=== PATIENT | female | born 1965 | race American Indian/Alaskan Native ===

== ENCOUNTER 2019-08-30 21:06 | Inpatient (IN) | payer BC, OTHER ==
[2019-08-31 00:41] LABS: Mean Corpuscular HGB Conc 30 % (30-34); Platelet Count 346 K/mm3 (140-440); Red Blood Count 2.93 M/mm3 (3.65-5.03); Red Cell Distribution Width 19.4 % (13.2-15.2)
[2019-08-31 00:48] LABS: Hematocrit 17.1 % (30.3-42.9); Hemoglobin 5.1 gm/dl (10.1-14.3); Mean Corpuscular Volume 58 fl (79-97)
[2019-08-31] MEDS ORDERED: SODIUM CHLORIDE 0.9% 1000 ML 1,000 ML IV ONE (01:07)
[2019-08-31] MEDS ORDERED: PANTOPRAZOLE 40 MG INJ IV ONE (01:07)
[2019-08-31] MEDS ORDERED: SODIUM CHLORIDE 0.9% 500 ML 500 ML IV ONE (01:08)
[2019-08-31 01:11] LABS: Alanine Aminotransferase 27 units/L (7-56); Albumin 3.3 g/dL (3.9-5); BUN/Creatinine Ratio 17; Blood Urea Nitrogen 19 mg/dL (7-17); Calcium 9.2 mg/dL (8.4-10.2); Hemolysis Index 0
[2019-08-31 01:13] LABS: Bacteria,Urine 2+ /HPF (Negative); Bilirubin,Urine NEG (Negative); Blood,Urine NEG (Negative); Color,Urine Amber (Yellow); HCG Qualitative,Urine Negative (Negative); Mucus,Urine FEW /HPF; Urobilinogen,Urine < 2.0 mg/dL (<2.0)
--- NOTE | 2019-08-31 01:18 | Emergency Department Report ---
HPI - General Chief Complaint: Abdominal Pain Time Seen by Provider: 08/31/19 00:58 - HPI HPI: Room 6 The patient is a 54-year-old female presenting with a chief complaint of diarrhea and fatigue. The patient states for the past 4-5 days she's had abdo mami bloating diffuse abdominal pain and diarrhea. The patient states her diarrhea has been black in color. Yesterday in the day before the patient had nausea vomiting but there was no blood or coffee ground emesis. Patient states she has no objections bahai or otherwise to receiving a blood transfusion if necessary Location: [See above] Duration: [See above] Quality: [See above] Severity: [See above] Timing: [See above] Context: [See above] Modifying factors: [See above] Associated signs and symptoms: [see above] ED Past Medical Hx - Past Medical History Previous Medical History?: No - Surgical History Past Surgical History?: No - Family History Family history: no significant - Social History Smoking Status: Never Smoker Substance Use Type: None (denies illicit drug use), Alcohol (occasional) - Medications Home Medications: Home Medications Medication Instructions Recorded Confirmed Last Taken Type Clindamycin [Clindamycin CAP] 600 mg PO BID #28 capsule 05/06/15 Unknown Rx Fluconazole [Diflucan TAB] 150 mg PO ONCE #1 tablet 05/06/15 Unknown Rx Oxycodone HCl/Acetaminophen 1 each PO TID PRN #15 tablet 05/06/15 Unknown Rx [Percocet 7.5/325 mg] ED Review of Systems ROS: Stated complaint: STOMACH PAIN GALICIA FEVER Other details as noted in HPI Constitutional: malaise Eyes: denies: eye pain ENT: denies: throat pain Respiratory: no symptoms reported Cardiovascular: denies: chest pain Endocrine: no symptoms reported Gastrointestinal: abdominal pain, nausea, vomiting, diarrhea, melena Genitourinary: denies: dysuria Musculoskeletal: back pain Neurological: denies: headache Physical Exam - Physical Exam Vital Signs: Vital Signs 08/30/19 08/30/19 23:35 23:51 Temperature 99.5 F 98.5 F Pulse Rate 124 H 115 H Respiratory 18 18 Rate Blood Pressure 118/44 Blood Pressure 120/45 [Right] O2 Sat by Pulse 98 99 Oximetry Physical Exam: GENERAL: The patient is well-developed well-nourished female lying on stretcher not appearing to be in acute distress. [] HEENT: Normocephalic. Atraumatic. Extraocular motions are intact. Patient has moist mucous membranes. NECK: Supple. Trachea midline CHEST/LUNGS: Clear to auscultation. There is no respiratory distress noted. HEART/CARDIOVASCULAR: Regular. There is no tachycardia. There is no gallop rub or murmur. ABDOMEN: Abdomen is soft, mild discomfort to palpation. No rebound or guarding. Patient has normal bowel sounds. There is no abdominal distention. SKIN: There is no rash. There is no edema. There is no diaphoresis. NEURO: The patient is awake, alert, and oriented. The patient is cooperative. The patient has no focal neurologic deficits. The patient has normal speech MUSCULOSKELETAL: There is no evidence of acute injury. RECTAL: Paucity of stool. Faint guaiac positive ED Course Vital Signs 08/30/19 08/30/19 23:35 23:51 Temperature 99.5 F 98.5 F Pulse Rate 124 H 115 H Respiratory 18 18 Rate Blood Pressure 118/44 Blood Pressure 120/45 [Right] O2 Sat by Pulse 98 99 Oximetry - Consultations Consultation #1: 08/31/19 01:19 GI paged 08/31/19 01:[address] Archer ED Medical Decision Making - Lab Data Result diagrams: 08/31/19 00:05 08/31/19 00:05 Laboratory Tests 08/30/19 08/31/19 08/31/19 Unknown 00:05 00:05 WBC 37.5 H RBC 2.93 L Hgb 5.1 L* Hct 17.1 L* MCV 58 L MCH 17 L MCHC 30 RDW 19.4 H Plt Count 346 Seg Neutrophils % Technical Solution Architect Sodium 137 Potassium 3.3 L Chloride 99.3 Carbon Dioxide 20 L Anion Gap 21 BUN 19 H Creatinine 1.1 Estimated GFR > 60 BUN/Creatinine Ratio 17 Glucose 107 H Calcium 9.2 Total Bilirubin 0.70 AST 19 ALT 27 Alkaline Phosphatase 109 Total Protein 7.2 Albumin 3.3 L Albumin/Globulin Ratio 0.8 Urine Color Sally Urine Turbidity Turbid Urine pH 5.0 Ur Specific [place] 1.021 Urine Protein 30 mg/dl Urine Glucose (UA) Neg Urine Ketones Neg Urine Blood Neg Urine Nitrite Neg Urine Bilirubin Neg Urine Urobilinogen < 2.0 Ur Leukocyte Esterase Sm Urine WBC (Auto) 81.0 H Urine RBC (Auto) 6.0 U Epithel Cells (Auto) 8.0 Urine Bacteria (Auto) 2+ Urine Mucus Few Urine HCG, Qual Negative - Differential Diagnosis GI bleed Critical care attestation.: If time is entered above; I have spent that time in minutes in the direct care of this critically ill patient, excluding procedure time. ED Disposition Clinical Impression: GI bleed, Symptomatic anemia, UTI (urinary tract infection) Disposition: OP ADMIT IP TO THIS HOSP Is pt being admited?: Yes Does the pt Need Aspirin: No Condition: Fair Instructions: Abdominal Pain (ED) Time of Disposition: 01:31 (hospitalist paged (Dr Trivedi))
[2019-08-31] MEDS ORDERED: ONDANSETRON 4 MG/2 ML INJ IV ONE (01:48)
[2019-08-31] MEDS ORDERED: fentaNYL 100 MCG/2 ML INJ IV ONE (01:48)
[2019-08-31] MEDS ORDERED: PANTOPRAZOLE 80 MG in SODIUM CHLORIDE 0.9% 100 ML IV SCH (02:00)
[2019-08-31 02:23] LABS: Partial Thromboplastin Time 41.6 Sec. (24.2-36.6)
[2019-08-31 02:26] LABS: INR 1.34 (0.87-1.13)
[2019-08-31 02:54] LABS: Total Cells Counted 100
[2019-08-31 02:55] LABS: Anisocytosis 1+; Basophils % (Manual) 0 % (0.0-1.8); Eosinophils % (Manual) 0 % (0.0-4.3); Hypochromasia 1+
[2019-08-31 02:56] LABS: Ovalocytes Few; Platelet Estimate Consistent w Auto
[2019-08-31] MEDS ORDERED: ONDANSETRON 4 MG/2 ML INJ IV PRN (03:59)
--- NOTE | 2019-08-31 04:09 | History and Physical Report ---
History of Present Illness Date of examination: 08/31/19 Date of admission: 08/31/2019 Chief complaint: Nausea vomiting and diarrhea Abdominal pain History of present illness: 54-year-old female who presents to the emergency room today complaining of nausea vomiting and diarrhea over the past 4 to 5 days with associated abdominal pain. She denies any fever or chills, she denies any chest pain or shortness of breath. She denies any sick contacts and no recent travel. She denies any headache or dizziness. She has had generalized fatigue. She indicates she has been using ibuprofen lately for abdominal pain and later on switched to acetaminophen. She indicates her stool has been black in color but she denies any bright red blood per rectum. She denies any hematuria or dysuria. Upon arrival in the emergency room her work-up was significant for anemia with hemoglobin of 5.1, she was also Hemoccult positive, and also had a UTI. She was subsequently started on Protonix drip and director of database marketing was consulted. Past History Past Medical History: No medical history Past Surgical History: Other (Surgery for ectopic in the past) Social history: no significant social history Family history: no significant family history Medications and Allergies Allergies Allergy/AdvReac Type Severity Reaction Status Date / Time codeine Allergy Hives Verified 05/06/15 00:32 Sulfa (Sulfonamide Allergy Unknown Verified 05/06/15 00:32 Antibiotics) Home Medications Medication Instructions Recorded Confirmed Last Taken Type Clindamycin [Clindamycin CAP] 600 mg PO BID #28 capsule 05/06/15 Unknown Rx Fluconazole [Diflucan TAB] 150 mg PO ONCE #1 tablet 05/06/15 Unknown Rx Oxycodone HCl/Acetaminophen 1 each PO TID PRN #15 tablet 05/06/15 Unknown Rx [Percocet 7.5/325 mg] Active Meds: Active Medications Acetaminophen (Tylenol) 650 mg PO Q4H PRN PRN Reason: Pain MILD(1-3)/Fever >100.5/AGLICIA Pantoprazole Sodium 80 mg/ (Sodium Chloride) 100 mls @ 10 mls/hr IV DIRECT YOANDY Sodium Chloride (Nacl 0.9% 1000 Ml) 1,000 mls @ 75 mls/hr IV DIRECT YOANDY Ondansetron HCl (Zofran) 4 mg IV Q8H PRN PRN Reason: Nausea And Vomiting Sodium Chloride (Sodium Chloride Flush Syringe 10 Ml) 10 ml IV BID YOANDY Sodium Chloride (Sodium Chloride Flush Syringe 10 Ml) 10 ml IV PRN PRN PRN Reason: LINE FLUSH Review of Systems Gastrointestinal: abdominal pain, nausea, vomiting, diarrhea Exam - Constitutional Vitals: Temp Pulse Resp BP Pulse Ox 98.5 F 119 H 24 150/54 95 08/30/19 23:51 08/31/19 02:15 08/31/19 02:15 08/31/19 02:15 08/31/19 02:15 General appearance: Present: no acute distress, well-nourished - EENT Eyes: Present: PERRL, EOM intact - Neck Neck: Present: normal ROM - Respiratory Respiratory effort: normal Respiratory: bilateral: CTA - Cardiovascular Rhythm: regular Heart Sounds: Present: S1 & S2 - Extremities Extremities: no ischemia, pulses intact, No edema, Full ROM Peripheral Pulses: within normal limits - Abdominal General gastrointestinal: Present: soft, tender, distended - Integumentary Integumentary: Present: clear, warm, dry - Musculoskeletal Musculoskeletal: strength equal bilaterally - Psychiatric Psychiatric: appropriate mood/affect, intact judgment & insight, cooperative - Neurologic Neurologic: CNII-XII intact, moves all extremities Results - Labs CBC & Chem 7: 08/31/19 00:05 08/31/19 00:05 Labs: Abnormal lab results 08/30/19 08/31/19 08/31/19 Range/Units Unknown 00:05 00:05 WBC 37.5 H (4.5-11.0) K/mm3 RBC 2.93 L (3.65-5.03) M/mm3 Hgb 5.1 L* (10.1-14.3) gm/dl Hct 17.1 L* (30.3-42.9) % MCV 58 L (79-97) fl MCH 17 L (28-32) pg RDW 19.4 H (13.2-15.2) % Seg Neuts % (Manual) 96.0 H (40.0-70.0) % Lymphocytes % (Manual) 2.0 L (13.4-35.0) % Seg Neutrophils # Man 36.0 H (1.8-7.7) K/mm3 Lymphocytes # (Manual) 0.8 L (1.2-5.4) K/mm3 PT (12.2-14.9) Sec. INR (0.87-1.13) APTT (24.2-36.6) Sec. Potassium 3.3 L (3.6-5.0) mmol/L Carbon Dioxide 20 L (22-30) mmol/L BUN 19 H (7-17) mg/dL Glucose 107 H (65-100) mg/dL Albumin 3.3 L (3.9-5) g/dL Urine WBC (Auto) 81.0 H (0.0-6.0) /HPF Crossmatch 08/31/19 08/31/19 Range/Units 01:47 01:51 WBC (4.5-11.0) K/mm3 RBC (3.65-5.03) M/mm3 Hgb (10.1-14.3) gm/dl Hct (30.3-42.9) % MCV (79-97) fl MCH (28-32) pg RDW (13.2-15.2) % Seg Neuts % (Manual) (40.0-70.0) % Lymphocytes % (Manual) (13.4-35.0) % Seg Neutrophils # Man (1.8-7.7) K/mm3 Lymphocytes # (Manual) (1.2-5.4) K/mm3 PT 16.8 H (12.2-14.9) Sec. INR 1.34 H (0.87-1.13) APTT 41.6 H (24.2-36.6) Sec. Potassium (3.6-5.0) mmol/L Carbon Dioxide (22-30) mmol/L BUN (7-17) mg/dL Glucose (65-100) mg/dL Albumin (3.9-5) g/dL Urine WBC (Auto) (0.0-6.0) /HPF Crossmatch See Detail Assessment and Plan - Patient Problems (1) GI bleed Current Visit: Yes Status: Acute Plan to address problem: Patient placed on Protonix drip and will schedule for blood transfusion. Will monitor CBC. Patient has also been placed on Protonix drip. Floor Service Worker [place] has been consulted for evaluation and further recommendation (2) Symptomatic anemia Current Visit: Yes Status: Acute Plan to address problem: Probably secondary to GI bleed. Will monitor CBC. (3) UTI (urinary tract infection) Current Visit: Yes Status: Acute Plan to address problem: Patient has been placed on empiric IV antibiotics. We will await urine culture result. (4) DVT prophylaxis Current Visit: Yes Status: Acute Plan to address problem: Patient placed on sequential compression device. (5) Full code status Current Visit: Yes Status: Acute
--- NOTE | 2019-08-31 04:21 | Cat Scan Report ---
CTA ABDOMEN AND PELVIS INDICATION / CLINICAL INFORMATION: Generalized abdominal pain. History of GI bleed. TECHNIQUE: Axial CT images were obtained through the abdomen and pelvis after injection of IV contrast. 3 plane MIP / 3D reconstructions were produced. All CT scans at this location are performed using CT dose red uction for ALARA by means of automated exposure control. COMPARISON: None FINDINGS: Limited imaging of the bilateral lung bases demonstrates no acute abnormality. ABDOMEN: The liver is markedly enlarged measuring 20 cm in greatest craniocaudal dimension by 22 cm i n transverse dimension. The gallbladder, spleen, pancreas, bilateral adrenal glands and bilateral kid neys show no evidence of acute abnormality. There are multiple loops of mildly prominent fluid-filled small bowel. There is no evidence of bowel obstruction. No free abdominal fluid is visualized. The abdominal aorta and proximal mesenteric vessels appear within normal limits. Pelvis: The uterus is markedly enlarged measuring 15 x 16 cm. It contains numerous heterogeneously en hancing masses, some of which are calcified. No free fluid is seen within the pelvis. The urinary minor dder appears grossly normal. Evaluation of bony structures demonstrates no evidence of acute bony abnormality. Soft tissue structu res appear grossly normal. IMPRESSION: 1. Multiple loops of mildly prominent fluid-filled small bowel throughout the abdomen. This is nonspe cific but can be associated with enteritis. 2. Markedly enlarged heterogeneous uterus as described above which contains multiple heterogeneous ma sses. These most likely represent multiple uterine fibroids. However, it would be difficult to exclud e malignant or sarcomatous degeneration. 3. No definitive CT evidence of obvious active GI bleed. 4. Hepatomegaly. Signer Name: Evelyn Tracy MD Signed: 08/31/2019 4:16 AM Workstation Name: [id number]
[2019-08-31] MEDS ORDERED: SODIUM CHLORIDE 0.9% 500 ML 500 ML ONE (04:52)
[2019-08-31] MEDS: ACETAMINOPHEN 325 MG TAB PO PRN ×3 (05:05→21:44)
--- NOTE | 2019-08-31 08:56 | Event Note ---
Date: 08/31/19 Patient seen and examined. This is a follow-up from an admission earlier this morning. We will continue to plan as outlined in H&P. Time spent equals 25 minutes with greater than 50% spent on coordination of care and counseling.
--- NOTE | 2019-08-31 09:14 | Gastroenterology Consultation ---
<VOLODYMYR MICHELLE - Last Filed: 08/31/19 10:04> History of Present Illness - Reason for Consult Consult date: 08/31/19 GI bleed Requesting physician: JENISE NICOLE - History of Present Illness Patient is a 54 y/o female who presented to ED with c/o fatigue after having viral type symptoms of fever, N/V, generalized abd pain described as cramping, and diarrhea x 4-5 days. Upon admission, she was found to have anemia with H/H 5.1/17.1 with also reports of dark/black stool to which GI has been consulted. This morning patient was resting in bed w/o acute distress receiving blood transfusion. She states she is feeling better with symptoms such as fever, abd pain, and N/V now improved. Still has loose stool with last BM this am (stool dark/greenish in color per patient). Denies CP, SOB, dizziness, hematemesis, constipation, or hematochezia. Admits to recent ill contact with family members with similar symptoms but no recent travel or antibiotic therapy. Reports a hx of chronic anemia since she was a child, requiring blood transfusion in the past and iron supplements intermittently in the past (not currently on iron supplement). No hx of PUD, liver disease, or GI bleeding. Has been taking Ibuprofen at home for fever. Underwent an EGD ~10yrs ago with results showing "inflammation in the stomach" per pt report. No prior colonoscopy. Abdominal CTA on admission, showed nonspecific enteritis, hepatomegaly, and likely uterine fibroids but no active GI bleeding. Past History Past Medical History: anemia Past Surgical History: Other (Surgery for ectopic in the past) Social history: no significant social history. denies: smoking, alcohol abuse (occasional alcohol) Family history: no significant family history Medications and Allergies Allergies Allergy/AdvReac Type Severity Reaction Status Date / Time codeine Allergy Hives Verified 05/06/15 00:32 Sulfa (Sulfonamide Allergy Unknown Verified 05/06/15 00:32 Antibiotics) Home Medications Medication Instructions Recorded Confirmed Last Taken Type No Known Home Medications [No 08/31/19 08/31/19 Unknown History Reported Home Medications] Active Meds: Active Medications Acetaminophen (Tylenol) 650 mg PO Q4H PRN PRN Reason: Pain MILD(1-3)/Fever >100.5/GALICIA Last Admin: 08/31/19 05:05 Dose: 650 mg Documented by: Pantoprazole Sodium 80 mg/ (Sodium Chloride) 100 mls @ 10 mls/hr IV DIRECT YOANDY Sodium Chloride (Nacl 0.9% 1000 Ml) 1,000 mls @ 75 mls/hr IV DIRECT YOANDY Levofloxacin/Dextrose (Levaquin 500mg/100ml) 500 mg in 100 mls @ 100 mls/hr IV Q24HR@2200 YOANDY; Protocol Ondansetron HCl (Zofran) 4 mg IV Q8H PRN PRN Reason: Nausea And Vomiting Sodium Chloride (Sodium Chloride Flush Syringe 10 Ml) 10 ml IV BID YOANDY Sodium Chloride (Sodium Chloride Flush Syringe 10 Ml) 10 ml IV PRN PRN PRN Reason: LINE FLUSH medications reviewed/updated as required Review of Systems - Review of Systems All systems: negative Constitutional: fever, fatigue Gastrointestinal: abdominal pain (cramping), nausea, vomiting, diarrhea Exam - Constitutional Vital Signs: Temp Pulse Resp BP Pulse Ox 99.2 F 110 H 18 121/61 100 08/31/19 07:56 08/31/19 07:56 08/31/19 07:56 08/31/19 07:56 08/31/19 07:56 General appearance: no acute distress - EENT Eyes: PERRL, EOM intact ENT: hearing intact - Respiratory Respiratory effort: normal - Cardiovascular Rhythm: other (tachycardia) - Gastrointestinal General gastrointestinal: Present: soft, non-tender, non-distended, normal bowel sounds - Integumentary Integumentary: Present: warm, dry - Neurologic Neurological: alert and oriented x3 - Labs CBC & Chem 7: 08/31/19 00:05 08/31/19 00:05 Lab Results: Laboratory Results - last 24 hr 08/30/19 08/31/19 08/31/19 Unknown 00:05 00:05 WBC 37.5 H RBC 2.93 L Hgb 5.1 L* Hct 17.1 L* MCV 58 L MCH 17 L MCHC 30 RDW 19.4 H Plt Count 346 Add Manual Diff Complete Total Counted 100 Seg Neutrophils % Stock Broker Supervisor Seg Neuts % (Manual) 96.0 H Band Neutrophils % 0 Lymphocytes % (Manual) 2.0 L Reactive Lymphs % (Man) 0 Monocytes % (Manual) 2.0 Eosinophils % (Manual) 0 Basophils % (Manual) 0 Metamyelocytes % 0 Myelocytes % 0 Promyelocytes % 0 Blast Cells % 0 Nucleated RBC % Not Reportable Seg Neutrophils # Man 36.0 H Band Neutrophils # 0.0 Lymphocytes # (Manual) 0.8 L Abs React Lymphs (Man) 0.0 Monocytes # (Manual) 0.8 Eosinophils # (Manual) 0.0 Basophils # (Manual) 0.0 Metamyelocytes # 0.0 Myelocytes # 0.0 Promyelocytes # 0.0 Blast Cells # 0.0 WBC Morphology Not Reportable Hypersegmented Neuts Not Reportable Hyposegmented Neuts Not Reportable Hypogranular Neuts Not Reportable Smudge Cells Not Reportable Toxic Granulation Not Reportable Toxic Vacuolation Not Reportable Dohle Bodies Not Reportable Pelger-Huet Anomaly Not Reportable Rukhsana Rods Not Reportable Platelet Estimate Consistent w auto Clumped Platelets Not Reportable Plt Clumps, EDTA Not Reportable Large Platelets Not Reportable Giant Platelets Not Reportable Platelet Satelliting Not Reportable Plt Morphology Comment Not Reportable RBC Morphology Not Reportable Dimorphic RBCs Not Reportable Polychromasia Few Hypochromasia 1+ Poikilocytosis Not Reportable Anisocytosis 1+ Microcytosis Not Reportable Macrocytosis Not Reportable Spherocytes Not Reportable Pappenheimer Bodies Not Reportable Sickle Cells Not Reportable Target Cells Not Reportable Tear Drop Cells Not Reportable Ovalocytes Few Helmet Cells Not Reportable Velarde-[place] Bodies Not Reportable Bussey Rings Not Reportable Garvin Cells Not Reportable Bite Cells Not Reportable Crenated Cell Not Reportable Elliptocytes Not Reportable Acanthocytes (Spur) Not Reportable Rouleaux Not Reportable Hemoglobin C Crystals Not Reportable Schistocytes Not Reportable Malaria parasites Not Reportable Jacob Bodies Not Reportable Hem Pathologist Commnt No PT INR APTT Sodium 137 Potassium 3.3 L Chloride 99.3 Carbon Dioxide 20 L Anion Gap 21 BUN 19 H Creatinine 1.1 Estimated GFR > 60 BUN/Creatinine Ratio 17 Glucose 107 H Calcium 9.2 Total Bilirubin 0.70 AST 19 ALT 27 Alkaline Phosphatase 109 Total Protein 7.2 Albumin 3.3 L Albumin/Globulin Ratio 0.8 HCG, Qual Urine Color Sally Urine Turbidity Turbid Urine pH 5.0 Ur Specific [place] 1.021 Urine Protein 30 mg/dl Urine Glucose (UA) Neg Urine Ketones Neg Urine Blood Neg Urine Nitrite Neg Urine Bilirubin Neg Urine Urobilinogen < 2.0 Ur Leukocyte Esterase Sm Urine WBC (Auto) 81.0 H Urine RBC (Auto) 6.0 U Epithel Cells (Auto) 8.0 Urine Bacteria (Auto) 2+ Urine Mucus Few Urine HCG, Qual Negative Blood Type Antibody Screen Crossmatch 08/31/19 08/31/19 08/31/19 01:47 01:51 03:09 WBC RBC Hgb Hct MCV MCH MCHC RDW Plt Count Add Manual Diff Total Counted Seg Neutrophils % Seg Neuts % (Manual) Band Neutrophils % Lymphocytes % (Manual) Reactive Lymphs % (Man) Monocytes % (Manual) Eosinophils % (Manual) Basophils % (Manual) Metamyelocytes % Myelocytes % Promyelocytes % Blast Cells % Nucleated RBC % Seg Neutrophils # Man Band Neutrophils # Lymphocytes # (Manual) Abs React Lymphs (Man) Monocytes # (Manual) Eosinophils # (Manual) Basophils # (Manual) Metamyelocytes # Myelocytes # Promyelocytes # Blast Cells # WBC Morphology Hypersegmented Neuts Hyposegmented Neuts Hypogranular Neuts Smudge Cells Toxic Granulation Toxic Vacuolation Dohle Bodies Pelger-Huet Anomaly Rukhsana Rods Platelet Estimate Clumped Platelets Plt Clumps, EDTA Large Platelets Giant Platelets Platelet Satelliting Plt Morphology Comment RBC Morphology Dimorphic RBCs Polychromasia Hypochromasia Poikilocytosis Anisocytosis Microcytosis Macrocytosis Spherocytes Pappenheimer Bodies Sickle Cells Target Cells Tear Drop Cells Ovalocytes Helmet Cells Velarde-[place] Bodies Bussey Rings Romario Cells Bite Cells Crenated Cell Elliptocytes Acanthocytes (Spur) Rouleaux Hemoglobin C Crystals Schistocytes Malaria parasites Jacob Bodies Hem Pathologist Commnt PT 16.8 H INR 1.34 H APTT 41.6 H Sodium Potassium Chloride Carbon Dioxide Anion Gap BUN Creatinine Estimated GFR BUN/Creatinine Ratio Glucose Calcium Total Bilirubin AST ALT Alkaline Phosphatase Total Protein Albumin Albumin/Globulin Ratio HCG, Qual Negative Urine Color Urine Turbidity Urine pH Ur Specific [place] Urine Protein Urine Glucose (UA) Urine Ketones Urine Blood Urine Nitrite Urine Bilirubin Urine Urobilinogen Ur Leukocyte Esterase Urine WBC (Auto) Urine RBC (Auto) U Epithel Cells (Auto) Urine Bacteria (Auto) Urine Mucus Urine HCG, Qual Blood Type AB POSITIVE Antibody Screen Negative Crossmatch See Detail Assessment and Plan 1.GI bleed?/anemia 2.abdominal pain (cramping) 3.N/V 4.diarrhea -temp 99.2 -WBC 37.5 -MCV 58, plt 346, INR 1.34 -BUN 19 -LFTs WNL -H/H 5.1/17.1- currently receiving blood transfusion; reports a hx of chronic anemia requiring blood transfusion/iron supplement in the past but baseline H/H unknown -continue to monitor H/H and transfuse as needed -abd CTA showed nonspecific enteritis, hepatomegaly, likely uterine fibroids (malignant not excluded) but no active GI bleeding -will schedule EGD today for further evaluation of GI bleeding/possible melena -Keep NPO -continue PPI -stool studies for diarrhea -continue empiric antibiotics and supportive care -uterine masses, likely fibroids seen on CTA could possibly be source of reported chronic anemia- consider SEWER SEPARATION DESIGNER consult -further recommendations to follow <LOYD MANCINI - Last Filed: 08/31/19 10:26> Medications and Allergies Active Meds: Active Medications Acetaminophen (Tylenol) 650 mg PO Q4H PRN PRN Reason: Pain MILD(1-3)/Fever >100.5/GALICIA Last Admin: 08/31/19 05:05 Dose: 650 mg Documented by: Pantoprazole Sodium 80 mg/ (Sodium Chloride) 100 mls @ 10 mls/hr IV DIRECT YOANDY Sodium Chloride (Nacl 0.9% 1000 Ml) 1,000 mls @ 75 mls/hr IV DIRECT YOANDY Levofloxacin/Dextrose (Levaquin 500mg/100ml) 500 mg in 100 mls @ 100 mls/hr IV Q24HR@2200 YOANDY; Protocol Ondansetron HCl (Zofran) 4 mg IV Q8H PRN PRN Reason: Nausea And Vomiting Last Admin: 08/31/19 09:23 Dose: 4 mg Documented by: Sodium Chloride (Sodium Chloride Flush Syringe 10 Ml) 10 ml IV BID YOANDY Sodium Chloride (Sodium Chloride Flush Syringe 10 Ml) 10 ml IV PRN PRN PRN Reason: LINE FLUSH Exam - Constitutional Vital Signs: Temp Pulse Resp BP Pulse Ox 99.2 F 110 H 18 121/61 100 08/31/19 07:56 08/31/19 07:56 08/31/19 07:56 08/31/19 07:56 08/31/19 07:56 - Labs CBC & Chem 7: 08/31/19 00:05 08/31/19 00:05 Lab Results: Laboratory Results - last 24 hr 08/30/19 08/31/19 08/31/19 Unknown 00:05 00:05 WBC 37.5 H RBC 2.93 L Hgb 5.1 L* Hct 17.1 L* MCV 58 L MCH 17 L MCHC 30 RDW 19.4 H Plt Count 346 Add Manual Diff Complete Total Counted 100 Seg Neutrophils % Stock Broker Supervisor Seg Neuts % (Manual) 96.0 H Band Neutrophils % 0 Lymphocytes % (Manual) 2.0 L Reactive Lymphs % (Man) 0 Monocytes % (Manual) 2.0 Eosinophils % (Manual) 0 Basophils % (Manual) 0 Metamyelocytes % 0 Myelocytes % 0 Promyelocytes % 0 Blast Cells % 0 Nucleated RBC % Not Reportable Seg Neutrophils # Man 36.0 H Band Neutrophils # 0.0 Lymphocytes # (Manual) 0.8 L Abs React Lymphs (Man) 0.0 Monocytes # (Manual) 0.8 Eosinophils # (Manual) 0.0 Basophils # (Manual) 0.0 Metamyelocytes # 0.0 Myelocytes # 0.0 Promyelocytes # 0.0 Blast Cells # 0.0 WBC Morphology Not Reportable Hypersegmented Neuts Not Reportable Hyposegmented Neuts Not Reportable Hypogranular Neuts Not Reportable Smudge Cells Not Reportable Toxic Granulation Not Reportable Toxic Vacuolation Not Reportable Dohle Bodies Not Reportable Pelger-Huet Anomaly Not Reportable Rukhsana Rods Not Reportable Platelet Estimate Consistent w auto Clumped Platelets Not Reportable Plt Clumps, EDTA Not Reportable Large Platelets Not Reportable Giant Platelets Not Reportable Platelet Satelliting Not Reportable Plt Morphology Comment Not Reportable RBC Morphology Not Reportable Dimorphic RBCs Not Reportable Polychromasia Few Hypochromasia 1+ Poikilocytosis Not Reportable Anisocytosis 1+ Microcytosis Not Reportable Macrocytosis Not Reportable Spherocytes Not Reportable Pappenheimer Bodies Not Reportable Sickle Cells Not Reportable Target Cells Not Reportable Tear Drop Cells Not Reportable Ovalocytes Few Helmet Cells Not Reportable Velarde-[place] Bodies Not Reportable Bussey Rings Not Reportable Garvin Cells Not Reportable Bite Cells Not Reportable Crenated Cell Not Reportable Elliptocytes Not Reportable Acanthocytes (Spur) Not Reportable Rouleaux Not Reportable Hemoglobin C Crystals Not Reportable Schistocytes Not Reportable Malaria parasites Not Reportable Jacob Bodies Not Reportable Hem Pathologist Commnt No PT INR APTT Sodium 137 Potassium 3.3 L Chloride 99.3 Carbon Dioxide 20 L Anion Gap 21 BUN 19 H Creatinine 1.1 Estimated GFR > 60 BUN/Creatinine Ratio 17 Glucose 107 H Calcium 9.2 Total Bilirubin 0.70 AST 19 ALT 27 Alkaline Phosphatase 109 Total Protein 7.2 Albumin 3.3 L Albumin/Globulin Ratio 0.8 HCG, Qual Urine Color Sally Urine Turbidity Turbid Urine pH 5.0 Ur Specific [place] 1.021 Urine Protein 30 mg/dl Urine Glucose (UA) Neg Urine Ketones Neg Urine Blood Neg Urine Nitrite Neg Urine Bilirubin Neg Urine Urobilinogen < 2.0 Ur Leukocyte Esterase Sm Urine WBC (Auto) 81.0 H Urine RBC (Auto) 6.0 U Epithel Cells (Auto) 8.0 Urine Bacteria (Auto) 2+ Urine Mucus Few Urine HCG, Qual Negative Blood Type Antibody Screen Crossmatch 08/31/19 08/31/19 08/31/19 01:47 01:51 03:09 WBC RBC Hgb Hct MCV MCH MCHC RDW Plt Count Add Manual Diff Total Counted Seg Neutrophils % Seg Neuts % (Manual) Band Neutrophils % Lymphocytes % (Manual) Reactive Lymphs % (Man) Monocytes % (Manual) Eosinophils % (Manual) Basophils % (Manual) Metamyelocytes % Myelocytes % Promyelocytes % Blast Cells % Nucleated RBC % Seg Neutrophils # Man Band Neutrophils # Lymphocytes # (Manual) Abs React Lymphs (Man) Monocytes # (Manual) Eosinophils # (Manual) Basophils # (Manual) Metamyelocytes # Myelocytes # Promyelocytes # Blast Cells # WBC Morphology Hypersegmented Neuts Hyposegmented Neuts Hypogranular Neuts Smudge Cells Toxic Granulation Toxic Vacuolation Dohle Bodies Pelger-Huet Anomaly Rukhsana Rods Platelet Estimate Clumped Platelets Plt Clumps, EDTA Large Platelets Giant Platelets Platelet Satelliting Plt Morphology Comment RBC Morphology Dimorphic RBCs Polychromasia Hypochromasia Poikilocytosis Anisocytosis Microcytosis Macrocytosis Spherocytes Pappenheimer Bodies Sickle Cells Target Cells Tear Drop Cells Ovalocytes Helmet Cells Velarde-[place] Bodies Bussey Rings Romario Cells Bite Cells Crenated Cell Elliptocytes Acanthocytes (Spur) Rouleaux Hemoglobin C Crystals Schistocytes Malaria parasites Jacob Bodies Hem Pathologist Commnt PT 16.8 H INR 1.34 H APTT 41.6 H Sodium Potassium Chloride Carbon Dioxide Anion Gap BUN Creatinine Estimated GFR BUN/Creatinine Ratio Glucose Calcium Total Bilirubin AST ALT Alkaline Phosphatase Total Protein Albumin Albumin/Globulin Ratio HCG, Qual Negative Urine Color Urine Turbidity Urine pH Ur Specific [place] Urine Protein Urine Glucose (UA) Urine Ketones Urine Blood Urine Nitrite Urine Bilirubin Urine Urobilinogen Ur Leukocyte Esterase Urine WBC (Auto) Urine RBC (Auto) U Epithel Cells (Auto) Urine Bacteria (Auto) Urine Mucus Urine HCG, Qual Blood Type AB POSITIVE Antibody Screen Negative Crossmatch See Detail Assessment and Plan Patient seen and examined; agree with note above. Pt with sepsis, severe anemia, questionable recent gi bleeding. will plan for EGD, rest as above.
[2019-08-31] MEDS ORDERED: SODIUM CHLORIDE 0.9% 1000 ML 1,000 ML ONE (10:13)
[2019-08-31] MEDS ORDERED: LIDOCAINE MPF (2%) 20 MG/1 ML VIAL 5 ML ONE (10:30)
--- NOTE | 2019-08-31 10:41 | Anesthesia Consultation ---
Anesthesia Consult and Med Hx Date of service: 08/31/19 - Airway Anesthetic Teeth Evaluation: Good (implants top incisors) ROM Head & Neck: Adequate Mental/Hyoid Distance: Adequate Mallampati Class: Class II Intubation Access Assessment: Probably Good - Pulmonary Exam CTA: Yes - Cardiac Exam Cardiac Exam: RRR (tachycardic) - Pre-Operative Health Status ASA Pre-Surgery Classification: ASA2 Proposed Anesthetic Plan: MAC - Pulmonary Hx Smoking: No SOB: Yes (last 5 days) - Cardiovascular System Hx Hypertension: No Hx Heart Attack/AMI: No - Central Nervous System CVA: No Hx Back Pain: Yes - Gastrointestinal Hx Gastroesophageal Reflux Disease: No - Endocrine Hx Renal Disease: No Hx Liver Disease: No Hx Insulin Dependent Diabetes: No Hx Non-Insulin Dependent Diabetes: No Hx Thyroid Disease: No - Hematic Hx Anemia: Yes (significant anema on admission. 2nd unit pRBCs transfusing on arrival to GI) - Other Systems Hx Obesity: No - Additional Comments Anesthesia Medical History Comments: No hx anesthetic complications.
[2019-08-31] MEDS ORDERED: PROPOFOL 200 MG/20 ML VIAL IV ONE (10:42)
--- NOTE | 2019-08-31 10:42 | Anesthesia Day of Surgery ---
Anesthesia Day of Surgery - Day of Surgery Patient Examined: Yes Patient H&P Reviewed: Yes Patient is NPO: Yes
[2019-08-31] MEDS ORDERED: LIDOCAINE (2%) 20 MG/1 ML VIAL 20 ML MDV INFILTRATI ONE (10:43)
[2019-08-31] MEDS ORDERED: SODIUM CHLORIDE 0.9% 1000 ML 1,000 ML IV SCH (10:45)
--- NOTE | 2019-08-31 10:55 | Operative Report ---
Operative Report Operative Report: Esophagogastroduodenoscopy Procedure Note with biopsies Date of procedure: 08/31/2019 Endoscopist: Bari Adhikari Pre-op diagnosis: GI bleed, melena Post-op diagnosis: Superficial gastric ulcers Anesthesia: MAC Complications: No immediate complications Estimated blood loss: minimal Procedure: After consent was obtained, the patient was placed in the left lateral decubitus position. The olympus endoscope was inserted into the patient's mouth under direct vision, and advanced into the 2nd portion of the duodenum without difficulty. The patient tolerated the procedure well. The views of the mucosa were good. Patient's vital signs were monitored continuously throughout the procedure. Findings: The esophagus appeared normal. There were multiple superficial ulcers in the distal body and antrum of the stomach. No high risk bleeding stigmata. Gastric biopsies were obtained to rule out H pylori. The duodenum appeared normal. Bile was seen throughout the visualized portion of the duodenum. Impression: 1. Superficial gastric ulcers without high risk bleeding stigmata. Gastric biopsies were obtained to rule out H pylori. Recommendations: -avoid nsaid medications -PPI po daily -monitor labs and transfuse prn -follow-up path -will follow
--- NOTE | 2019-08-31 11:15 | Post Anesthesia Evaluation ---
- Post Anesthesia Evaluation Patient Participated: Yes Airway Patent: Yes Stable Respiratory Function: Yes Nausea/Vomiting: No Temp > 96.8F: Yes Pain Manageable: Yes Adequeate Hydration: Yes Anesthesia Complications: No
[2019-08-31] MEDS: MORPHINE 2 MG/1 ML INJ IV PRN ×2 (12:22→18:50)
[2019-08-31] MEDS: SODIUM CHLORIDE 0.9% 1000 ML 1,000 ML IV SCH (12:30)
[2019-08-31] MEDS: PANTOPRAZOLE 40 MG INJ IV SCH (21:40)
[2019-09-01] MEDS: MORPHINE 2 MG/1 ML INJ IV PRN ×4 (03:37→21:10)
[2019-09-01] MEDS: ACETAMINOPHEN 325 MG TAB PO PRN ×2 (05:18→16:45)
[2019-09-01 07:09] LABS: Hematocrit 21.7 % (30.3-42.9); Hemoglobin 6.6 gm/dl (10.1-14.3); Mean Corpuscular HGB Conc 31 % (30-34); Platelet Count 301 K/mm3 (140-440); Red Blood Count 3.43 M/mm3 (3.65-5.03)
[2019-09-01 07:27] LABS: Mean Corpuscular Volume 63 fl (79-97); Red Cell Distribution Width 25.7 % (13.2-15.2)
[2019-09-01 07:28] LABS: INR 1.18 (0.87-1.13)
[2019-09-01 07:29] LABS: Partial Thromboplastin Time 54.6 Sec. (24.2-36.6)
[2019-09-01 07:30] LABS: BUN/Creatinine Ratio 14; Blood Urea Nitrogen 11 mg/dL (7-17); Calcium 8.3 mg/dL (8.4-10.2); Hemolysis Index 0
[2019-09-01 09:14] LABS: Total Cells Counted 100
[2019-09-01 09:15] LABS: Anisocytosis 2+; Band Neutrophils # (Manual) 0.6 K/mm3; Basophils % (Manual) 0 % (0.0-1.8); Eosinophils % (Manual) 0 % (0.0-4.3); Hypochromasia 2+; Macrocytosis 2+
[2019-09-01 09:16] LABS: Dimorphic RBC Yes; Ovalocytes Few; Platelet Estimate Consistent w Auto; Target Cells Few
[2019-09-01] MEDS: PANTOPRAZOLE 40 MG INJ IV SCH ×2 (09:24→21:10)
--- NOTE | 2019-09-01 11:09 | Gastroenterology Progress Note ---
<VOLODYMYR MICHELLE - Last Filed: 09/01/19 11:14> Assessment and Plan 1.GI bleed?/anemia 2.abdominal pain (cramping) 3.N/V 4.diarrhea Temp-100.3 -WBC 14.7-trending down -LFTs WNL -H/H 6.6/21.7-appropriate rise s/p 1 unit PRBCs yesterday; continue to monitor H/H and transfuse as needed -no active signs of bleeding overnight or this am. -patient reports a hx of chronic anemia requiring blood transfusion/iron supplement in the past but baseline H/H unknown -abd CTA on admission showed nonspecific enteritis, hepatomegaly, likely uterine fibroids (malignant not excluded) but no active GI bleeding -s/p EGD yesterday that showed multiple superficial ulcers in the distal body and antrum but no high risk bleeding stigmata -bx results pending-f/u in clinic -clinically, patient's GI symptoms (abd pain, N/V, diarrhea) have now resolved but has persistant fever. Tolerating liquids. -recommend ID consult for workup of fever -okay to advance diet as tolerated -avoid NSAIDs -continue PPI -Keep NPO -continue PPI -stool studies if diarrhea reoccurs -continue empiric antibiotics x 7days and supportive care -uterine masses, likely fibroids seen on CTA as above could possibly be source of reported chronic anemia; recommend [employer] consult for further workup -if tolerates advanced diet, okay to be d/c per GI standpoint on above medicat ions with f/u in clinic in ~2-3 weeks (may need colon as outpatient for anemia if recommended per [employer]) -will sign off, please call if needed Subjective Date of service: 09/01/19 Principal diagnosis: GI bleed Interval history: Patient resting in bed this am w/o acute distress. Reports feeling better with N/v, diarrhea, and abd pain now resolved. No active signs of bleeding overnight or this am. Tolerating liquids. Objective - Constitutional Vitals: Temp Pulse Resp BP Pulse Ox 100.3 F H 103 H 20 120/46 100 09/01/19 05:10 09/01/19 05:10 09/01/19 05:10 09/01/19 05:10 09/01/19 05:10 General appearance: no acute distress - EENT Eyes: PERRL, EOM intact ENT: hearing intact - Respiratory Respiratory effort: normal - Cardiovascular Rhythm: other (tachycardia) - Gastrointestinal General gastrointestinal: Present: soft, non-tender, non-distended, normal bowel sounds - Neurologic Neurological: alert and oriented x3 - Labs CBC & Chem 7: 09/01/19 05:57 09/01/19 05:57 Labs: Laboratory Results - last 24 hr 08/31/19 09/01/19 09/01/19 01:47 05:57 05:57 WBC 14.7 H RBC 3.43 L Hgb 6.6 L Hct 21.7 L MCV 63 L MCH 19 L MCHC 31 RDW 25.7 H Plt Count 301 Add Manual Diff Complete Total Counted 100 Seg Neuts % (Manual) 93.0 H Band Neutrophils % 4.0 Lymphocytes % (Manual) 1.0 L Reactive Lymphs % (Man) 0 Monocytes % (Manual) 2.0 Eosinophils % (Manual) 0 Basophils % (Manual) 0 Metamyelocytes % 0 Myelocytes % 0 Promyelocytes % 0 Blast Cells % 0 Nucleated RBC % Not Reportable Seg Neutrophils # Man 13.7 H Band Neutrophils # 0.6 Lymphocytes # (Manual) 0.1 L Abs React Lymphs (Man) 0.0 Monocytes # (Manual) 0.3 Eosinophils # (Manual) 0.0 Basophils # (Manual) 0.0 Metamyelocytes # 0.0 Myelocytes # 0.0 Promyelocytes # 0.0 Blast Cells # 0.0 WBC Morphology Not Reportable Hypersegmented Neuts Not Reportable Hyposegmented Neuts Not Reportable Hypogranular Neuts Not Reportable Smudge Cells Not Reportable Toxic Granulation Not Reportable Toxic Vacuolation Not Reportable Dohle Bodies Not Reportable Pelger-Huet Anomaly Not Reportable Rukhsana Rods Not Reportable Platelet Estimate Consistent w auto Clumped Platelets Not Reportable Plt Clumps, EDTA Not Reportable Large Platelets Not Reportable Giant Platelets Not Reportable Platelet Satelliting Not Reportable Plt Morphology Comment Not Reportable RBC Morphology Not Reportable Dimorphic RBCs Yes Polychromasia Not Reportable Hypochromasia 2+ Poikilocytosis Not Reportable Anisocytosis 2+ Microcytosis Not Reportable Macrocytosis 2+ Spherocytes Not Reportable Pappenheimer Bodies Not Reportable Sickle Cells Not Reportable Target Cells Few Tear Drop Cells Not Reportable Ovalocytes Few Helmet Cells Not Reportable [place] Bodies Not Reportable [place] Rings Not Reportable Romario Cells Not Reportable Bite Cells Not Reportable Crenated Cell Not Reportable Elliptocytes Not Reportable Acanthocytes (Spur) Not Reportable Rouleaux Not Reportable Hemoglobin C Crystals Not Reportable Schistocytes Not Reportable Malaria parasites Not Reportable Jacob Bodies Not Reportable Hem Pathologist Commnt No PT 15.2 H INR 1.18 H APTT 54.6 H Sodium Potassium Chloride Carbon Dioxide Anion Gap BUN Creatinine Estimated GFR BUN/Creatinine Ratio Glucose Calcium Crossmatch See Detail 09/01/19 05:57 WBC RBC Hgb Hct MCV MCH MCHC RDW Plt Count Add Manual Diff Total Counted Seg Neuts % (Manual) Band Neutrophils % Lymphocytes % (Manual) Reactive Lymphs % (Man) Monocytes % (Manual) Eosinophils % (Manual) Basophils % (Manual) Metamyelocytes % Myelocytes % Promyelocytes % Blast Cells % Nucleated RBC % Seg Neutrophils # Man Band Neutrophils # Lymphocytes # (Manual) Abs React Lymphs (Man) Monocytes # (Manual) Eosinophils # (Manual) Basophils # (Manual) Metamyelocytes # Myelocytes # Promyelocytes # Blast Cells # WBC Morphology Hypersegmented Neuts Hyposegmented Neuts Hypogranular Neuts Smudge Cells Toxic Granulation Toxic Vacuolation Dohle Bodies Pelger-Huet Anomaly Rukhsana Rods Platelet Estimate Clumped Platelets Plt Clumps, EDTA Large Platelets Giant Platelets Platelet Satelliting Plt Morphology Comment RBC Morphology Dimorphic RBCs Polychromasia Hypochromasia Poikilocytosis Anisocytosis Microcytosis Macrocytosis Spherocytes Pappenheimer Bodies Sickle Cells Target Cells Tear Drop Cells Ovalocytes Helmet Cells [place] Bodies [place] Rings [place] Cells Bite Cells Crenated Cell Elliptocytes Acanthocytes (Spur) Rouleaux Hemoglobin C Crystals Schistocytes Malaria parasites Jacob Bodies Hem Pathologist Commnt PT INR APTT Sodium 138 Potassium 4.0 D Chloride 105.3 Carbon Dioxide 18 L Anion Gap 19 BUN 11 Creatinine 0.8 Estimated GFR > 60 BUN/Creatinine Ratio 14 Glucose 83 Calcium 8.3 L Crossmatch <LOYD MANCINI - Last Filed: 09/01/19 15:09> Assessment and Plan Patient seen and examined. agree with note above. no further signs of gi bleeding. under going work-up for sepsis. will need f/u in GI clinic for outpatient colonoscopy. Objective - Constitutional Vitals: Temp Pulse Resp BP Pulse Ox 98.4 F 103 H 20 121/58 100 09/01/19 12:06 09/01/19 12:06 09/01/19 12:06 09/01/19 12:06 09/01/19 12:06 - Labs CBC & Chem 7: 09/01/19 05:57 09/01/19 05:57 Labs: Laboratory Results - last 24 hr 09/01/19 09/01/19 09/01/19 05:57 05:57 05:57 WBC 14.7 H RBC 3.43 L Hgb 6.6 L Hct 21.7 L MCV 63 L MCH 19 L MCHC 31 RDW 25.7 H Plt Count 301 Add Manual Diff Complete Total Counted 100 Seg Neuts % (Manual) 93.0 H Band Neutrophils % 4.0 Lymphocytes % (Manual) 1.0 L Reactive Lymphs % (Man) 0 Monocytes % (Manual) 2.0 Eosinophils % (Manual) 0 Basophils % (Manual) 0 Metamyelocytes % 0 Myelocytes % 0 Promyelocytes % 0 Blast Cells % 0 Nucleated RBC % Not Reportable Seg Neutrophils # Man 13.7 H Band Neutrophils # 0.6 Lymphocytes # (Manual) 0.1 L Abs React Lymphs (Man) 0.0 Monocytes # (Manual) 0.3 Eosinophils # (Manual) 0.0 Basophils # (Manual) 0.0 Metamyelocytes # 0.0 Myelocytes # 0.0 Promyelocytes # 0.0 Blast Cells # 0.0 WBC Morphology Not Reportable Hypersegmented Neuts Not Reportable Hyposegmented Neuts Not Reportable Hypogranular Neuts Not Reportable Smudge Cells Not Reportable Toxic Granulation Not Reportable Toxic Vacuolation Not Reportable Dohle Bodies Not Reportable Pelger-Huet Anomaly Not Reportable Rukhsana Rods Not Reportable Platelet Estimate Consistent w auto Clumped Platelets Not Reportable Plt Clumps, EDTA Not Reportable Large Platelets Not Reportable Giant Platelets Not Reportable Platelet Satelliting Not Reportable Plt Morphology Comment Not Reportable RBC Morphology Not Reportable Dimorphic RBCs Yes Polychromasia Not Reportable Hypochromasia 2+ Poikilocytosis Not Reportable Anisocytosis 2+ Microcytosis Not Reportable Macrocytosis 2+ Spherocytes Not Reportable Pappenheimer Bodies Not Reportable Sickle Cells Not Reportable Target Cells Few Tear Drop Cells Not Reportable Ovalocytes Few Helmet Cells Not Reportable [place] Bodies Not Reportable [place] Rings Not Reportable Romario Cells Not Reportable Bite Cells Not Reportable Crenated Cell Not Reportable Elliptocytes Not Reportable Acanthocytes (Spur) Not Reportable Rouleaux Not Reportable Hemoglobin C Crystals Not Reportable Schistocytes Not Reportable Malaria parasites Not Reportable Jacob Bodies Not Reportable Hem Pathologist Commnt No PT 15.2 H INR 1.18 H APTT 54.6 H Sodium 138 Potassium 4.0 D Chloride 105.3 Carbon Dioxide 18 L Anion Gap 19 BUN 11 Creatinine 0.8 Estimated GFR > 60 BUN/Creatinine Ratio 14 Glucose 83 Calcium 8.3 L
[2019-09-01] MEDS: SODIUM CHLORIDE 0.9% 1000 ML 1,000 ML IV SCH (13:57)
--- NOTE | 2019-09-01 14:13 | Consultation ---
History of Present Illness - Reason for Consult Consult date: 09/01/19 Fever Requesting physician: VOLODYMYR MICHELLE - History of Present Illness The patient is a 54 y/o female who was admitted on 08/31/2019 after she presented with a multitude of symptoms including nausea, vomiting, few loose stools, abdominal pain. She was also having urinary burning going on for several days prior to admission. She was found to have severe anemia, leukemoid reaction. Was seen by GI, underwent EGD, showed multiple superficial ulcers in the distal body and antrum. Got blood transfusions. Due to persistent low grade fevers, ID was consulted. Complains of mild low back pain. Denies any cough or shortness of breath. Diarrhea has resolved. Is currently on levofloxacin. Review of Systems: General: fever + HEENT: no new visual disturbance Respiratory: no cough, shortness of breath or wheeze Cardiovascular: No chest pain, syncope Gastrointestinal: + nausea, vomiting, diarrhea prior to admission Genitourinary: dysuria +, no hematuria Musculoskeletal: No new or worsening neck pain. back pain + Neurologic: No headaches, seizures Hematologic: No easy bruising or active bleeding Endocrine: No night sweats or acute weight loss Skin: negative for rash, jaundice Psychiatric: No suicidal or homicidal ideation Past History Past Medical History: anemia Past Surgical History: Other (Surgery for ectopic in the past) Social history: no significant social history. denies: smoking, alcohol abuse (occasional alcohol) Family history: no significant family history Medications and Allergies Allergies Allergy/AdvReac Type Severity Reaction Status Date / Time codeine Allergy Hives Verified 05/06/15 00:32 Sulfa (Sulfonamide Allergy Unknown Verified 05/06/15 00:32 Antibiotics) Home Medications Medication Instructions Recorded Confirmed Last Taken Type No Known Home Medications [No 08/31/19 08/31/19 Unknown History Reported Home Medications] Active Meds: Active Medications Acetaminophen (Tylenol) 650 mg PO Q4H PRN PRN Reason: Pain MILD(1-3)/Fever >100.5/GALICIA Last Admin: 09/01/19 05:18 Dose: 650 mg Documented by: Sodium Chloride (Nacl 0.9% 1000 Ml) 1,000 mls @ 75 mls/hr IV DIRECT YOANDY Last Admin: 09/01/19 13:57 Dose: 75 mls/hr Documented by: Levofloxacin/Dextrose (Levaquin 500mg/100ml) 500 mg in 100 mls @ 100 mls/hr IV Q24HR@2200 [facility]; Protocol Last Admin: 08/31/19 21:39 Dose: 100 mls/hr Documented by: Morphine Sulfate (Morphine) 2 mg IV Q4H PRN PRN Reason: Pain, Moderate (4-6) Last Admin: 09/01/19 13:53 Dose: 2 mg Documented by: Ondansetron HCl (Zofran) 4 mg IV Q8H PRN PRN Reason: Nausea And Vomiting Last Admin: 08/31/19 09:23 Dose: 4 mg Documented by: Pantoprazole Sodium (Protonix) 40 mg IV BID [facility] Last Admin: 09/01/19 09:24 Dose: 40 mg Documented by: Sodium Chloride (Sodium Chloride Flush Syringe 10 Ml) 10 ml IV BID [facility] Last Admin: 09/01/19 09:29 Dose: 10 ml Documented by: Sodium Chloride (Sodium Chloride Flush Syringe 10 Ml) 10 ml IV PRN PRN PRN Reason: LINE FLUSH Physical Examination - Physical Exam Narrative exam: Physical Exam: Constitutional: Awake, alert, ambulating in the room Head, Ears, Nose: Normocephalic, atraumatic. External ears, nose normal Eyes: Conjunctivae/corneas clear. No icterus. No ptosis. Neck: Supple, no meningeal signs Oral: no thrush Cardiovascular: S1, S2 normal. Respiratory: Good air entry, clear to auscultation bilaterally GI: Soft, non-tender; bowel sounds normal. No peritoneal signs. Mild CVA tenderness + Musculoskeletal: No pedal edema, no cyanosis. Skin: No rash or abscess Hem/Lymphatic: No palpable cervical or supraclavicular nodes. No lymphangitis Psych: Mood ok. Affect normal Neurological: awake, alert, ambulating in the room. - Constitutional Vitals: Vital Signs Temp Pulse Resp BP Pulse Ox 98.4 F 103 H 20 121/58 100 09/01/19 12:06 09/01/19 12:06 09/01/19 12:06 09/01/19 12:06 09/01/19 12:06 Temperature -Last 24 Hours Temperature 98.4 F Temperature 100.3 F Temperature 97.7 F Temperature 100.2 F Results - Labs CBC & Chem 7: 09/01/19 05:57 09/01/19 05:57 Labs: Abnormal lab results 09/01/19 09/01/19 09/01/19 Range/Units 05:57 05:57 05:57 WBC 14.7 H (4.5-11.0) K/mm3 RBC 3.43 L (3.65-5.03) M/mm3 Hgb 6.6 L (10.1-14.3) gm/dl Hct 21.7 L (30.3-42.9) % MCV 63 L (79-97) fl MCH 19 L (28-32) pg RDW 25.7 H (13.2-15.2) % Seg Neuts % (Manual) 93.0 H (40.0-70.0) % Lymphocytes % (Manual) 1.0 L (13.4-35.0) % Seg Neutrophils # Man 13.7 H (1.8-7.7) K/mm3 Lymphocytes # (Manual) 0.1 L (1.2-5.4) K/mm3 PT 15.2 H (12.2-14.9) Sec. INR 1.18 H (0.87-1.13) APTT 54.6 H (24.2-36.6) Sec. Carbon Dioxide 18 L (22-30) mmol/L Calcium 8.3 L (8.4-10.2) mg/dL - Imaging and Cardiology CT scan - abdomen: report reviewed, image reviewed (enteritis, uterine fibroids) Assessment and Plan Cultures: 08/30/2019 urine culture: <10K gomez A/P: 54 y/o female with uterine fibroids, admitted with #Severe anemia, leukemoid reaction: improving. Seen by GI. S/P transfusions. #Fever, likely from UTI: UA with significant pyuria. ?not a clean sample given epithelial cells. but patient symptomatic, will switch to Ceftriaxone. #Enteritis: seems to be improving. viral v/s bacterial. Should be self limited. Recs: levofloxacin d/salazar IV Ceftriaxone 2 gm daily started recheck CBC tomorrow Yuliya Bailey MD, FACP [facility] C: [phone] O: [phone] F: [phone]
--- NOTE | 2019-09-01 15:09 | Progress Note ---
Assessment and Plan - Patient Problems (1) GI bleed Current Visit: Yes Status: Acute Plan to address problem: Patient EGD showed superficial ulcers no high risk bleeding. Stable to tolerate increase in p.o. intake. (2) Symptomatic anemia Current Visit: Yes Status: Acute Plan to address problem: We will transfuse patient as tolerated. Symptoms appear to be improving. (3) UTI (urinary tract infection) Current Visit: Yes Status: Acute Plan to address problem: UTI treat with ongoing antibiotics. (4) Uterine fibroid Current Visit: Yes Status: Acute Plan to address problem: We will follow-up with [employer] as outpatient to rule out source of possible chronic bleeding. (5) Acute gastroenteritis Current Visit: Yes Status: Acute Plan to address problem: Patient CT scan showed acute enteritis. Currently continues to have fever. On Rocephin. Cultures negative so far. History Interval history: Patient states she feels better. Still has flank pain. Clinically improved nausea vomiting has resolved. Feels she can attempt to tolerate increases in by mouth. Hospitalist Physical - Constitutional Vitals: Temp Pulse Resp BP Pulse Ox 98.4 F 103 H 20 121/58 100 09/01/19 12:06 09/01/19 12:06 09/01/19 12:06 09/01/19 12:06 09/01/19 12:06 General appearance: Present: no acute distress, well-nourished - EENT Eyes: Present: PERRL, EOM intact ENT: hearing intact, clear oral mucosa, dentition normal - Neck Neck: Present: supple, normal ROM - Respiratory Respiratory effort: normal Respiratory: bilateral: CTA - Cardiovascular Rhythm: regular Heart Sounds: Present: S1 & S2 - Extremities Extremities: no ischemia, pulses intact, pulses symmetrical, No edema, normal temperature, normal color, Full ROM Peripheral Pulses: within normal limits - Abdominal General gastrointestinal: soft, non-tender, tender, distended, normal bowel sounds, hypoactive bowel sounds, absent bowel sounds - Integumentary Integumentary: Present: clear, warm, dry - Psychiatric Psychiatric: appropriate mood/affect, intact judgment & insight, memory intact - Neurologic Neurologic: CNII-XII intact, focal deficits, moves all extremities Results - Labs CBC & Chem 7: 09/01/19 05:57 09/01/19 05:57 Labs: Laboratory Last Values WBC 14.7 K/mm3 (4.5-11.0) H 09/01/19 05:57 RBC 3.43 M/mm3 (3.65-5.03) L 09/01/19 05:57 Hgb 6.6 gm/dl (10.1-14.3) L 09/01/19 05:57 Hct 21.7 % (30.3-42.9) L 09/01/19 05:57 MCV 63 fl (79-97) L 09/01/19 05:57 MCH 19 pg (28-32) L 09/01/19 05:57 MCHC 31 % (30-34) 09/01/19 05:57 RDW 25.7 % (13.2-15.2) H 09/01/19 05:57 Plt Count 301 K/mm3 (140-440) 09/01/19 05:57 Add Manual Diff Complete 09/01/19 05:57 Total Counted 100 09/01/19 05:57 Seg Neutrophils % [employer] 08/31/19 00:05 Seg Neuts % (Manual) 93.0 % (40.0-70.0) H 09/01/19 05:57 Band Neutrophils % 4.0 % 09/01/19 05:57 Lymphocytes % (Manual) 1.0 % (13.4-35.0) L 09/01/19 05:57 Reactive Lymphs % (Man) 0 % 09/01/19 05:57 Monocytes % (Manual) 2.0 % (0.0-7.3) 09/01/19 05:57 Eosinophils % (Manual) 0 % (0.0-4.3) 09/01/19 05:57 Basophils % (Manual) 0 % (0.0-1.8) 09/01/19 05:57 Metamyelocytes % 0 % 09/01/19 05:57 Myelocytes % 0 % 09/01/19 05:57 Promyelocytes % 0 % 09/01/19 05:57 Blast Cells % 0 % 09/01/19 05:57 Nucleated RBC % Not Reportable 09/01/19 05:57 Seg Neutrophils # Man 13.7 K/mm3 (1.8-7.7) H 09/01/19 05:57 Band Neutrophils # 0.6 K/mm3 09/01/19 05:57 Lymphocytes # (Manual) 0.1 K/mm3 (1.2-5.4) L 09/01/19 05:57 Abs React Lymphs (Man) 0.0 K/mm3 09/01/19 05:57 Monocytes # (Manual) 0.3 K/mm3 (0.0-0.8) 09/01/19 05:57 Eosinophils # (Manual) 0.0 K/mm3 (0.0-0.4) 09/01/19 05:57 Basophils # (Manual) 0.0 K/mm3 (0.0-0.1) 09/01/19 05:57 Metamyelocytes # 0.0 K/mm3 09/01/19 05:57 Myelocytes # 0.0 K/mm3 09/01/19 05:57 Promyelocytes # 0.0 K/mm3 09/01/19 05:57 Blast Cells # 0.0 K/mm3 09/01/19 05:57 WBC Morphology Not Reportable 09/01/19 05:57 Hypersegmented Neuts Not Reportable 09/01/19 05:57 Hyposegmented Neuts Not Reportable 09/01/19 05:57 Hypogranular Neuts Not Reportable 09/01/19 05:57 Smudge Cells Not Reportable 09/01/19 05:57 Toxic Granulation Not Reportable 09/01/19 05:57 Toxic Vacuolation Not Reportable 09/01/19 05:57 Dohle Bodies Not Reportable 09/01/19 05:57 Pelger-Huet Anomaly Not Reportable 09/01/19 05:57 Rukhsana Rods Not Reportable 09/01/19 05:57 Platelet Estimate Consistent w auto 09/01/19 05:57 Clumped Platelets Not Reportable 09/01/19 05:57 Plt Clumps, EDTA Not Reportable 09/01/19 05:57 Large Platelets Not Reportable 09/01/19 05:57 Giant Platelets Not Reportable 09/01/19 05:57 Platelet Satelliting Not Reportable 09/01/19 05:57 Plt Morphology Comment Not Reportable 09/01/19 05:57 RBC Morphology Not Reportable 09/01/19 05:57 Dimorphic RBCs Yes 09/01/19 05:57 Polychromasia Not Reportable 09/01/19 05:57 Hypochromasia 2+ 09/01/19 05:57 Poikilocytosis Not Reportable 09/01/19 05:57 Anisocytosis 2+ 09/01/19 05:57 Microcytosis Not Reportable 09/01/19 05:57 Macrocytosis 2+ 09/01/19 05:57 Spherocytes Not Reportable 09/01/19 05:57 Pappenheimer Bodies Not Reportable 09/01/19 05:57 Sickle Cells Not Reportable 09/01/19 05:57 Target Cells Few 09/01/19 05:57 Tear Drop Cells Not Reportable 09/01/19 05:57 Ovalocytes Few 09/01/19 05:57 Helmet Cells Not Reportable 09/01/19 05:57 [place] Bodies Not Reportable 09/01/19 05:57 [place] Rings Not Reportable 09/01/19 05:57 [place] Cells Not Reportable 09/01/19 05:57 Bite Cells Not Reportable 09/01/19 05:57 Crenated Cell Not Reportable 09/01/19 05:57 Elliptocytes Not Reportable 09/01/19 05:57 Acanthocytes (Spur) Not Reportable 09/01/19 05:57 Rouleaux Not Reportable 09/01/19 05:57 Hemoglobin C Crystals Not Reportable 09/01/19 05:57 Schistocytes Not Reportable 09/01/19 05:57 Malaria parasites Not Reportable 09/01/19 05:57 Jacob Bodies Not Reportable 09/01/19 05:57 Hem Pathologist Commnt No 09/01/19 05:57 PT 15.2 Sec. (12.2-14.9) H 09/01/19 05:57 INR 1.18 (0.87-1.13) H 09/01/19 05:57 APTT 54.6 Sec. (24.2-36.6) H 09/01/19 05:57 Sodium 138 mmol/L (137-145) 09/01/19 05:57 Potassium 4.0 mmol/L (3.6-5.0) D 09/01/19 05:57 Chloride 105.3 mmol/L (98-107) 09/01/19 05:57 Carbon Dioxide 18 mmol/L (22-30) L 09/01/19 05:57 Anion Gap 19 mmol/L 09/01/19 05:57 BUN 11 mg/dL (7-17) 09/01/19 05:57 Creatinine 0.8 mg/dL (0.7-1.2) 09/01/19 05:57 Estimated GFR > 60 ml/min 09/01/19 05:57 BUN/Creatinine Ratio 14 % 09/01/19 05:57 Glucose 83 mg/dL (65-100) 09/01/19 05:57 Calcium 8.3 mg/dL (8.4-10.2) L 09/01/19 05:57 Total Bilirubin 0.70 mg/dL (0.1-1.2) 08/31/19 00:05 AST 19 units/L (5-40) 08/31/19 00:05 ALT 27 units/L (7-56) 08/31/19 00:05 Alkaline Phosphatase 109 units/L (35-129) 08/31/19 00:05 Total Protein 7.2 g/dL (6.3-8.2) 08/31/19 00:05 Albumin 3.3 g/dL (3.9-5) L 08/31/19 00:05 Albumin/Globulin Ratio 0.8 % 08/31/19 00:05 HCG, Qual Negative (Negative) 08/31/19 03:09 Urine Color Sally (Yellow) 08/30/19 Unknown Urine Turbidity Turbid (Clear) 08/30/19 Unknown Urine pH 5.0 (5.0-7.0) 08/30/19 Unknown Ur Specific [place] 1.021 (1.003-1.030) 08/30/19 Unknown Urine Protein 30 mg/dl mg/dL (Negative) 08/30/19 Unknown Urine Glucose (UA) Neg mg/dL (Negative) 08/30/19 Unknown Urine Ketones Neg mg/dL (Negative) 08/30/19 Unknown Urine Blood Neg (Negative) 08/30/19 Unknown Urine Nitrite Neg (Negative) 08/30/19 Unknown Urine Bilirubin Neg (Negative) 08/30/19 Unknown Urine Urobilinogen < 2.0 mg/dL (<2.0) 08/30/19 Unknown Ur Leukocyte Esterase Sm (Negative) 08/30/19 Unknown Urine WBC (Auto) 81.0 /HPF (0.0-6.0) H 08/30/19 Unknown Urine RBC (Auto) 6.0 /HPF (0.0-6.0) 08/30/19 Unknown U Epithel Cells (Auto) 8.0 /HPF (0-13.0) 08/30/19 Unknown Urine Bacteria (Auto) 2+ /HPF (Negative) 08/30/19 Unknown Urine Mucus Few /HPF 08/30/19 Unknown Urine HCG, Qual Negative (Negative) 08/30/19 Unknown Blood Type AB POSITIVE 08/31/19 01:47 Antibody Screen Negative 08/31/19 01:47 Crossmatch See Detail 08/31/19 01:47 Active Medications - Current Medications Current Medications: Generic Name Dose Route Start Last Admin Trade Name Freq PRN Reason Stop Dose Admin Acetaminophen 650 mg 08/31/19 03:59 09/01/19 05:18 Tylenol PO 650 mg Q4H PRN Administration Pain MILD(1-3)/Fever >100.5/GALICIA Sodium Chloride 1,000 mls @ 75 mls/hr 08/31/19 04:00 09/01/19 13:57 Nacl 0.9% 1000 Ml IV 75 mls/hr DIRECT YOANDY Administration Ceftriaxone Sodium 2 gm in 100 mls @ 200 mls/hr 09/01/19 16:00 Rocephin/Ns 2 Gm/100 Ml IV Q24HR YOANDY Protocol Morphine Sulfate 2 mg 08/31/19 12:11 09/01/19 13:53 Morphine IV 2 mg Q4H PRN Administration Pain, Moderate (4-6) Ondansetron HCl 4 mg 08/31/19 03:59 08/31/19 09:23 Zofran IV 4 mg Q8H PRN Administration Nausea And Vomiting Pantoprazole Sodium 40 mg 08/31/19 22:00 09/01/19 09:24 Protonix IV 40 mg BID YOANDY Administration Sodium Chloride 10 ml 08/31/19 10:00 09/01/19 09:29 Sodium Chloride Flush Syringe 10 Ml IV 10 ml BID YOANDY Administration Sodium Chloride 10 ml 08/31/19 03:59 Sodium Chloride Flush Syringe 10 Ml IV PRN PRN LINE FLUSH
[2019-09-01] MEDS: cefTRIAXone/NS 2 GM/100 ML 2 GM/100 ML BAG IV SCH (17:59)
[2019-09-02] MEDS: ACETAMINOPHEN 325 MG TAB PO PRN ×3 (00:34→19:20)
[2019-09-02] MEDS: MORPHINE 2 MG/1 ML INJ IV PRN ×5 (01:29→21:01)
[2019-09-02] MEDS: SODIUM CHLORIDE 0.9% 1000 ML 1,000 ML IV SCH ×2 (05:44→21:14)
[2019-09-02] MEDS ORDERED: SODIUM CHLORIDE 0.9% 500 ML 500 ML IV NR (09:00)
[2019-09-02] MEDS: PANTOPRAZOLE 40 MG INJ IV SCH ×2 (09:43→21:00)
[2019-09-02] MEDS: cefTRIAXone/NS 2 GM/100 ML 2 GM/100 ML BAG IV SCH (09:43)
--- NOTE | 2019-09-02 14:10 | Progress Note ---
Assessment and Plan Cultures: 08/30/2019 urine culture: <10K gomez 09/02/2019 blood culture: in process A/P: 54 y/o female with uterine fibroids, admitted with #Severe anemia, leukemoid reaction: improving. Seen by GI. S/P transfusions. CT abdomen showed enteritis. #Fever, likely from UTI: UA with significant pyuria. ?not a clean sample given epithelial cells, cultures non revealing. But patient still symptomatic and f ebrile, will switch to Meropenem. #Enteritis: seems to have resolved. Noted on CT, diarrhea also resolved. ?viral v/s bacterial. Typically abx are not needed. Recs: Ceftriaxone d/salazar started IV Meropenem 1 gm q8 hrs monitor fever and WBC Yuliya Bailey MD, FACP [facility] ([facility]) C: [phone] O: [phone] F: [phone] Subjective Date of service: 09/02/19 Principal diagnosis: GI bleed Interval history: Continues to spike fevers. Not feeling well. Mild back pain continues, mild urinary burning continues. No cough or shortness of breath. No vomiting or diarrhea. Objective - Exam Narrative Exam: Physical Exam: Constitutional: Awake, alert, no resp distress Head, Ears, Nose: Normocephalic, atraumatic. External ears, nose normal Eyes: Conjunctivae/corneas clear. No icterus. No ptosis. Neck: Supple, no meningeal signs Oral: no thrush Cardiovascular: S1, S2 normal. Respiratory: Good air entry, clear to auscultation bilaterally GI: Soft, non-tender; bowel sounds normal. No peritoneal signs. Musculoskeletal: No pedal edema, no cyanosis. Skin: No rash or abscess Hem/Lymphatic: No palpable cervical or supraclavicular nodes. No lymphangitis Psych: Mood ok. Affect normal Neurological: awake, alert, oriented, grossly non focal - Constitutional Vitals: Vital Signs Temp Pulse Resp BP Pulse Ox 101.5 F H 93 H 16 130/60 99 09/02/19 12:08 09/02/19 05:01 09/02/19 12:08 09/02/19 12:08 09/02/19 05:01 Temperature -Last 24 Hours Temperature 101.5 F Temperature 98.7 F Temperature 101.6 F Temperature 100.0 F Temperature 102.5 F - Labs CBC & Chem 7: 09/01/19 05:57 09/01/19 05:57 Labs: Abnormal lab results 08/31/19 Range/Units 01:47 Crossmatch See Detail
[2019-09-02] MEDS: MEROPENEM/NS 1 GRAM/100 ML 1 GRAM/100 ML BAG IV SCH ×2 (14:56→21:00)
--- NOTE | 2019-09-02 20:03 | Progress Note ---
Assessment and Plan - Patient Problems (1) GI bleed Current Visit: Yes Status: Acute Plan to address problem: No evidence of active bleeding. Will give an additional 1 unit packed red blood cell. H&H 6 and 20. (2) Symptomatic anemia Current Visit: Yes Status: Acute Plan to address problem: Again we will give an additional unit packed red blood cells to bring hemoglobin to greater than 7. (3) UTI (urinary tract infection) Current Visit: Yes Status: Acute Plan to address problem: Continue present antibiotics. (4) Uterine fibroid Current Visit: Yes Status: Acute Plan to address problem: We will follow-up with SUPERVISOR CARDING as outpatient to rule out source of possible chronic bleeding. (5) Acute gastroenteritis Current Visit: Yes Status: Acute Plan to address problem: Gastroenteritis. Persistent fever. IV antibiotics change from Rocephin to meropenem. Culture data remains unremarkable. History Interval history: Clinically patient is much better today. Able to tolerate meals. No abdominal pain. No flank pain. No evidence of active bleeding. Hospital course complicated by persistent fever. Hospitalist Physical - Constitutional Vitals: Temp Pulse Resp BP Pulse Ox 102.1 F H 93 H 16 97/42 99 09/02/19 19:48 09/02/19 05:01 09/02/19 17:08 09/02/19 17:08 09/02/19 05:01 General appearance: Present: no acute distress, well-nourished - EENT Eyes: Present: PERRL, EOM intact ENT: hearing intact, clear oral mucosa, dentition normal - Neck Neck: Present: supple, normal ROM - Respiratory Respiratory effort: normal Respiratory: bilateral: CTA - Cardiovascular Rhythm: regular - Extremities Extremities: no ischemia, pulses intact, pulses symmetrical, No edema, normal temperature Peripheral Pulses: within normal limits - Abdominal General gastrointestinal: soft, non-tender, non-distended, normal bowel sounds, no hepatomegaly, no splenomegaly - Integumentary Integumentary: Present: clear, warm, dry - Psychiatric Psychiatric: appropriate mood/affect - Neurologic Neurologic: CNII-XII intact, moves all extremities Results - Labs CBC & Chem 7: 09/01/19 05:57 09/01/19 05:57 Labs: Laboratory Last Values WBC 14.7 K/mm3 (4.5-11.0) H 09/01/19 05:57 RBC 3.43 M/mm3 (3.65-5.03) L 09/01/19 05:57 Hgb 6.6 gm/dl (10.1-14.3) L 09/01/19 05:57 Hct 21.7 % (30.3-42.9) L 09/01/19 05:57 MCV 63 fl (79-97) L 09/01/19 05:57 MCH 19 pg (28-32) L 09/01/19 05:57 MCHC 31 % (30-34) 09/01/19 05:57 RDW 25.7 % (13.2-15.2) H 09/01/19 05:57 Plt Count 301 K/mm3 (140-440) 09/01/19 05:57 Add Manual Diff Complete 09/01/19 05:57 Total Counted 100 09/01/19 05:57 Seg Neutrophils % Staff Occupational Therapist 08/31/19 00:05 Seg Neuts % (Manual) 93.0 % (40.0-70.0) H 09/01/19 05:57 Band Neutrophils % 4.0 % 09/01/19 05:57 Lymphocytes % (Manual) 1.0 % (13.4-35.0) L 09/01/19 05:57 Reactive Lymphs % (Man) 0 % 09/01/19 05:57 Monocytes % (Manual) 2.0 % (0.0-7.3) 09/01/19 05:57 Eosinophils % (Manual) 0 % (0.0-4.3) 09/01/19 05:57 Basophils % (Manual) 0 % (0.0-1.8) 09/01/19 05:57 Metamyelocytes % 0 % 09/01/19 05:57 Myelocytes % 0 % 09/01/19 05:57 Promyelocytes % 0 % 09/01/19 05:57 Blast Cells % 0 % 09/01/19 05:57 Nucleated RBC % Not Reportable 09/01/19 05:57 Seg Neutrophils # Man 13.7 K/mm3 (1.8-7.7) H 09/01/19 05:57 Band Neutrophils # 0.6 K/mm3 09/01/19 05:57 Lymphocytes # (Manual) 0.1 K/mm3 (1.2-5.4) L 09/01/19 05:57 Abs React Lymphs (Man) 0.0 K/mm3 09/01/19 05:57 Monocytes # (Manual) 0.3 K/mm3 (0.0-0.8) 09/01/19 05:57 Eosinophils # (Manual) 0.0 K/mm3 (0.0-0.4) 09/01/19 05:57 Basophils # (Manual) 0.0 K/mm3 (0.0-0.1) 09/01/19 05:57 Metamyelocytes # 0.0 K/mm3 09/01/19 05:57 Myelocytes # 0.0 K/mm3 09/01/19 05:57 Promyelocytes # 0.0 K/mm3 09/01/19 05:57 Blast Cells # 0.0 K/mm3 09/01/19 05:57 WBC Morphology Not Reportable 09/01/19 05:57 Hypersegmented Neuts Not Reportable 09/01/19 05:57 Hyposegmented Neuts Not Reportable 09/01/19 05:57 Hypogranular Neuts Not Reportable 09/01/19 05:57 Smudge Cells Not Reportable 09/01/19 05:57 Toxic Granulation Not Reportable 09/01/19 05:57 Toxic Vacuolation Not Reportable 09/01/19 05:57 Dohle Bodies Not Reportable 09/01/19 05:57 Pelger-Huet Anomaly Not Reportable 09/01/19 05:57 Rukhsana Rods Not Reportable 09/01/19 05:57 Platelet Estimate Consistent w auto 09/01/19 05:57 Clumped Platelets Not Reportable 09/01/19 05:57 Plt Clumps, EDTA Not Reportable 09/01/19 05:57 Large Platelets Not Reportable 09/01/19 05:57 Giant Platelets Not Reportable 09/01/19 05:57 Platelet Satelliting Not Reportable 09/01/19 05:57 Plt Morphology Comment Not Reportable 09/01/19 05:57 RBC Morphology Not Reportable 09/01/19 05:57 Dimorphic RBCs Yes 09/01/19 05:57 Polychromasia Not Reportable 09/01/19 05:57 Hypochromasia 2+ 09/01/19 05:57 Poikilocytosis Not Reportable 09/01/19 05:57 Anisocytosis 2+ 09/01/19 05:57 Microcytosis Not Reportable 09/01/19 05:57 Macrocytosis 2+ 09/01/19 05:57 Spherocytes Not Reportable 09/01/19 05:57 Pappenheimer Bodies Not Reportable 09/01/19 05:57 Sickle Cells Not Reportable 09/01/19 05:57 Target Cells Few 09/01/19 05:57 Tear Drop Cells Not Reportable 09/01/19 05:57 Ovalocytes Few 09/01/19 05:57 Helmet Cells Not Reportable 09/01/19 05:57 [place] Bodies Not Reportable 09/01/19 05:57 [place] Rings Not Reportable 09/01/19 05:57 [place] Cells Not Reportable 09/01/19 05:57 Bite Cells Not Reportable 09/01/19 05:57 Crenated Cell Not Reportable 09/01/19 05:57 Elliptocytes Not Reportable 09/01/19 05:57 Acanthocytes (Spur) Not Reportable 09/01/19 05:57 Rouleaux Not Reportable 09/01/19 05:57 Hemoglobin C Crystals Not Reportable 09/01/19 05:57 Schistocytes Not Reportable 09/01/19 05:57 Malaria parasites Not Reportable 09/01/19 05:57 Jacob Bodies Not Reportable 09/01/19 05:57 Hem Pathologist Commnt No 09/01/19 05:57 PT 15.2 Sec. (12.2-14.9) H 09/01/19 05:57 INR 1.18 (0.87-1.13) H 09/01/19 05:57 APTT 54.6 Sec. (24.2-36.6) H 09/01/19 05:57 Sodium 138 mmol/L (137-145) 09/01/19 05:57 Potassium 4.0 mmol/L (3.6-5.0) D 09/01/19 05:57 Chloride 105.3 mmol/L (98-107) 09/01/19 05:57 Carbon Dioxide 18 mmol/L (22-30) L 09/01/19 05:57 Anion Gap 19 mmol/L 09/01/19 05:57 BUN 11 mg/dL (7-17) 09/01/19 05:57 Creatinine 0.8 mg/dL (0.7-1.2) 09/01/19 05:57 Estimated GFR > 60 ml/min 09/01/19 05:57 BUN/Creatinine Ratio 14 % 09/01/19 05:57 Glucose 83 mg/dL (65-100) 09/01/19 05:57 Calcium 8.3 mg/dL (8.4-10.2) L 09/01/19 05:57 Total Bilirubin 0.70 mg/dL (0.1-1.2) 08/31/19 00:05 AST 19 units/L (5-40) 08/31/19 00:05 ALT 27 units/L (7-56) 08/31/19 00:05 Alkaline Phosphatase 109 units/L (35-129) 08/31/19 00:05 Total Protein 7.2 g/dL (6.3-8.2) 08/31/19 00:05 Albumin 3.3 g/dL (3.9-5) L 08/31/19 00:05 Albumin/Globulin Ratio 0.8 % 08/31/19 00:05 HCG, Qual Negative (Negative) 08/31/19 03:09 Urine Color Sally (Yellow) 08/30/19 Unknown Urine Turbidity Turbid (Clear) 08/30/19 Unknown Urine pH 5.0 (5.0-7.0) 08/30/19 Unknown Ur Specific [place] 1.021 (1.003-1.030) 08/30/19 Unknown Urine Protein 30 mg/dl mg/dL (Negative) 08/30/19 Unknown Urine Glucose (UA) Neg mg/dL (Negative) 08/30/19 Unknown Urine Ketones Neg mg/dL (Negative) 08/30/19 Unknown Urine Blood Neg (Negative) 08/30/19 Unknown Urine Nitrite Neg (Negative) 08/30/19 Unknown Urine Bilirubin Neg (Negative) 08/30/19 Unknown Urine Urobilinogen < 2.0 mg/dL (<2.0) 08/30/19 Unknown Ur Leukocyte Esterase Sm (Negative) 08/30/19 Unknown Urine WBC (Auto) 81.0 /HPF (0.0-6.0) H 08/30/19 Unknown Urine RBC (Auto) 6.0 /HPF (0.0-6.0) 08/30/19 Unknown U Epithel Cells (Auto) 8.0 /HPF (0-13.0) 08/30/19 Unknown Urine Bacteria (Auto) 2+ /HPF (Negative) 08/30/19 Unknown Urine Mucus Few /HPF 08/30/19 Unknown Urine HCG, Qual Negative (Negative) 08/30/19 Unknown Blood Type AB POSITIVE 08/31/19 01:47 Antibody Screen Negative 08/31/19 01:47 Crossmatch See Detail 08/31/19 01:47 Active Medications - Current Medications Current Medications: Generic Name Dose Route Start Last Admin Trade Name Freq PRN Reason Stop Dose Admin Acetaminophen 650 mg 08/31/19 03:59 09/02/19 19:20 Tylenol PO 650 mg Q4H PRN Administration Pain MILD(1-3)/Fever >100.5/GALICIA Sodium Chloride 1,000 mls @ 75 mls/hr 08/31/19 04:00 09/02/19 05:44 Nacl 0.9% 1000 Ml IV 75 mls/hr DIRECT YOANDY Administration MEROPENEM/NS 1 GRAM/100 ML 1 gram in 100 mls @ 100 mls/hr 09/02/19 15:30 09/02/19 14:56 Merrem/Ns 1 Gram/100 Ml IV 100 mls/hr Q8HR YOANDY Administration Protocol Morphine Sulfate 2 mg 08/31/19 12:11 09/02/19 16:42 Morphine IV 2 mg Q4H PRN Administration Pain, Moderate (4-6) Ondansetron HCl 4 mg 08/31/19 03:59 08/31/19 09:23 Zofran IV 4 mg Q8H PRN Administration Nausea And Vomiting Pantoprazole Sodium 40 mg 08/31/19 22:00 09/02/19 09:43 Protonix IV 09/02/19 23:59 40 mg BID YOANDY Administration Pantoprazole Sodium 40 mg 09/03/19 10:00 Protonix PO BID YOANDY Sodium Chloride 10 ml 08/31/19 10:00 09/02/19 09:51 Sodium Chloride Flush Syringe 10 Ml IV 10 ml BID YOANDY Administration Sodium Chloride 10 ml 08/31/19 03:59 Sodium Chloride Flush Syringe 10 Ml IV PRN PRN LINE FLUSH
[2019-09-03] MEDS: MORPHINE 2 MG/1 ML INJ IV PRN ×6 (02:02→23:04)
[2019-09-03] MEDS: ACETAMINOPHEN 325 MG TAB PO PRN ×3 (02:12→18:00)
[2019-09-03] MEDS ORDERED: SODIUM CHLORIDE 0.9% 500 ML 500 ML IV ONE (02:50)
[2019-09-03] MEDS: MEROPENEM/NS 1 GRAM/100 ML 1 GRAM/100 ML BAG IV SCH ×3 (05:55→21:11)
[2019-09-03] MEDS: PANTOPRAZOLE 40 MG TAB PO SCH ×2 (10:30→21:11)
--- NOTE | 2019-09-03 12:14 | Progress Note ---
Assessment and Plan Assessment and plan: Anemia. Patient's hemoglobin still less than 7. We will transfuse PRBCs once fever has resolved. Enteritis. CT abdomen showed enteritis. Continue antibiotics per ID. UTI. Continue antibiotics and follow-up blood and urine cultures. Sepsis. Present on admission. Patient meets criteria given tachycardia, fever and diagnosis of enteritis/UTI. Continue to follow-up cultures. Uterine fibroid. Follow-up with HVAC/R INSTRUCTOR as an outpatient to rule out source of possible chronic bleeding. History Interval history: No new issues overnight. Hospitalist Physical - Constitutional Vitals: Temp Pulse Resp BP Pulse Ox 98.3 F 87 17 94/53 95 09/03/19 05:43 09/03/19 06:03 09/03/19 06:25 09/03/19 06:03 09/03/19 06:03 General appearance: Present: no acute distress, well-nourished - EENT Eyes: Present: PERRL, EOM intact ENT: hearing intact, clear oral mucosa, dentition normal - Neck Neck: Present: supple, normal ROM - Respiratory Respiratory effort: normal Respiratory: bilateral: CTA - Cardiovascular Rhythm: regular Heart Sounds: Present: S1 & S2. Absent: gallop, rub - Extremities Extremities: no ischemia, No edema, Full ROM - Abdominal General gastrointestinal: soft, non-tender, non-distended, normal bowel sounds - Integumentary Integumentary: Present: clear, warm, dry - Neurologic Neurologic: CNII-XII intact, moves all extremities Results - Labs CBC & Chem 7: 09/01/19 05:57 09/01/19 05:57 Labs: Laboratory Last Values WBC 14.7 K/mm3 (4.5-11.0) H 09/01/19 05:57 RBC 3.43 M/mm3 (3.65-5.03) L 09/01/19 05:57 Hgb 6.6 gm/dl (10.1-14.3) L 09/01/19 05:57 Hct 21.7 % (30.3-42.9) L 09/01/19 05:57 MCV 63 fl (79-97) L 09/01/19 05:57 MCH 19 pg (28-32) L 09/01/19 05:57 MCHC 31 % (30-34) 09/01/19 05:57 RDW 25.7 % (13.2-15.2) H 09/01/19 05:57 Plt Count 301 K/mm3 (140-440) 09/01/19 05:57 Add Manual Diff Complete 09/01/19 05:57 Total Counted 100 09/01/19 05:57 Seg Neutrophils % Building Supervisor 08/31/19 00:05 Seg Neuts % (Manual) 93.0 % (40.0-70.0) H 09/01/19 05:57 Band Neutrophils % 4.0 % 09/01/19 05:57 Lymphocytes % (Manual) 1.0 % (13.4-35.0) L 09/01/19 05:57 Reactive Lymphs % (Man) 0 % 09/01/19 05:57 Monocytes % (Manual) 2.0 % (0.0-7.3) 09/01/19 05:57 Eosinophils % (Manual) 0 % (0.0-4.3) 09/01/19 05:57 Basophils % (Manual) 0 % (0.0-1.8) 09/01/19 05:57 Metamyelocytes % 0 % 09/01/19 05:57 Myelocytes % 0 % 09/01/19 05:57 Promyelocytes % 0 % 09/01/19 05:57 Blast Cells % 0 % 09/01/19 05:57 Nucleated RBC % Not Reportable 09/01/19 05:57 Seg Neutrophils # Man 13.7 K/mm3 (1.8-7.7) H 09/01/19 05:57 Band Neutrophils # 0.6 K/mm3 09/01/19 05:57 Lymphocytes # (Manual) 0.1 K/mm3 (1.2-5.4) L 09/01/19 05:57 Abs React Lymphs (Man) 0.0 K/mm3 09/01/19 05:57 Monocytes # (Manual) 0.3 K/mm3 (0.0-0.8) 09/01/19 05:57 Eosinophils # (Manual) 0.0 K/mm3 (0.0-0.4) 09/01/19 05:57 Basophils # (Manual) 0.0 K/mm3 (0.0-0.1) 09/01/19 05:57 Metamyelocytes # 0.0 K/mm3 09/01/19 05:57 Myelocytes # 0.0 K/mm3 09/01/19 05:57 Promyelocytes # 0.0 K/mm3 09/01/19 05:57 Blast Cells # 0.0 K/mm3 09/01/19 05:57 WBC Morphology Not Reportable 09/01/19 05:57 Hypersegmented Neuts Not Reportable 09/01/19 05:57 Hyposegmented Neuts Not Reportable 09/01/19 05:57 Hypogranular Neuts Not Reportable 09/01/19 05:57 Smudge Cells Not Reportable 09/01/19 05:57 Toxic Granulation Not Reportable 09/01/19 05:57 Toxic Vacuolation Not Reportable 09/01/19 05:57 Dohle Bodies Not Reportable 09/01/19 05:57 Pelger-Huet Anomaly Not Reportable 09/01/19 05:57 Rukhsana Rods Not Reportable 09/01/19 05:57 Platelet Estimate Consistent w auto 09/01/19 05:57 Clumped Platelets Not Reportable 09/01/19 05:57 Plt Clumps, EDTA Not Reportable 09/01/19 05:57 Large Platelets Not Reportable 09/01/19 05:57 Giant Platelets Not Reportable 09/01/19 05:57 Platelet Satelliting Not Reportable 09/01/19 05:57 Plt Morphology Comment Not Reportable 09/01/19 05:57 RBC Morphology Not Reportable 09/01/19 05:57 Dimorphic RBCs Yes 09/01/19 05:57 Polychromasia Not Reportable 09/01/19 05:57 Hypochromasia 2+ 09/01/19 05:57 Poikilocytosis Not Reportable 09/01/19 05:57 Anisocytosis 2+ 09/01/19 05:57 Microcytosis Not Reportable 09/01/19 05:57 Macrocytosis 2+ 09/01/19 05:57 Spherocytes Not Reportable 09/01/19 05:57 Pappenheimer Bodies Not Reportable 09/01/19 05:57 Sickle Cells Not Reportable 09/01/19 05:57 Target Cells Few 09/01/19 05:57 Tear Drop Cells Not Reportable 09/01/19 05:57 Ovalocytes Few 09/01/19 05:57 Helmet Cells Not Reportable 09/01/19 05:57 Velarde[place] Bodies Not Reportable 09/01/19 05:57 [place] Rings Not Reportable 09/01/19 05:57 [place] Cells Not Reportable 09/01/19 05:57 Bite Cells Not Reportable 09/01/19 05:57 Crenated Cell Not Reportable 09/01/19 05:57 Elliptocytes Not Reportable 09/01/19 05:57 Acanthocytes (Spur) Not Reportable 09/01/19 05:57 Rouleaux Not Reportable 09/01/19 05:57 Hemoglobin C Crystals Not Reportable 09/01/19 05:57 Schistocytes Not Reportable 09/01/19 05:57 Malaria parasites Not Reportable 09/01/19 05:57 Jacob Bodies Not Reportable 09/01/19 05:57 Hem Pathologist Commnt No 09/01/19 05:57 PT 15.2 Sec. (12.2-14.9) H 09/01/19 05:57 INR 1.18 (0.87-1.13) H 09/01/19 05:57 APTT 54.6 Sec. (24.2-36.6) H 09/01/19 05:57 Sodium 138 mmol/L (137-145) 09/01/19 05:57 Potassium 4.0 mmol/L (3.6-5.0) D 09/01/19 05:57 Chloride 105.3 mmol/L (98-107) 09/01/19 05:57 Carbon Dioxide 18 mmol/L (22-30) L 09/01/19 05:57 Anion Gap 19 mmol/L 09/01/19 05:57 BUN 11 mg/dL (7-17) 09/01/19 05:57 Creatinine 0.8 mg/dL (0.7-1.2) 09/01/19 05:57 Estimated GFR > 60 ml/min 09/01/19 05:57 BUN/Creatinine Ratio 14 % 09/01/19 05:57 Glucose 83 mg/dL (65-100) 09/01/19 05:57 Calcium 8.3 mg/dL (8.4-10.2) L 09/01/19 05:57 Total Bilirubin 0.70 mg/dL (0.1-1.2) 08/31/19 00:05 AST 19 units/L (5-40) 08/31/19 00:05 ALT 27 units/L (7-56) 08/31/19 00:05 Alkaline Phosphatase 109 units/L (35-129) 08/31/19 00:05 Total Protein 7.2 g/dL (6.3-8.2) 08/31/19 00:05 Albumin 3.3 g/dL (3.9-5) L 08/31/19 00:05 Albumin/Globulin Ratio 0.8 % 08/31/19 00:05 HCG, Qual Negative (Negative) 08/31/19 03:09 Urine Color Sally (Yellow) 08/30/19 Unknown Urine Turbidity Turbid (Clear) 08/30/19 Unknown Urine pH 5.0 (5.0-7.0) 08/30/19 Unknown Ur Specific [place] 1.021 (1.003-1.030) 08/30/19 Unknown Urine Protein 30 mg/dl mg/dL (Negative) 08/30/19 Unknown Urine Glucose (UA) Neg mg/dL (Negative) 08/30/19 Unknown Urine Ketones Neg mg/dL (Negative) 08/30/19 Unknown Urine Blood Neg (Negative) 08/30/19 Unknown Urine Nitrite Neg (Negative) 08/30/19 Unknown Urine Bilirubin Neg (Negative) 08/30/19 Unknown Urine Urobilinogen < 2.0 mg/dL (<2.0) 08/30/19 Unknown Ur Leukocyte Esterase Sm (Negative) 08/30/19 Unknown Urine WBC (Auto) 81.0 /HPF (0.0-6.0) H 08/30/19 Unknown Urine RBC (Auto) 6.0 /HPF (0.0-6.0) 08/30/19 Unknown U Epithel Cells (Auto) 8.0 /HPF (0-13.0) 08/30/19 Unknown Urine Bacteria (Auto) 2+ /HPF (Negative) 08/30/19 Unknown Urine Mucus Few /HPF 08/30/19 Unknown Urine HCG, Qual Negative (Negative) 08/30/19 Unknown Blood Type AB POSITIVE 09/03/19 05:27 Antibody Screen Negative 09/03/19 05:27 Crossmatch See Detail 09/03/19 05:27 Active Medications - Current Medications Current Medications: Generic Name Dose Route Start Last Admin Trade Name Freq PRN Reason Stop Dose Admin Acetaminophen 650 mg 08/31/19 03:59 09/03/19 10:39 Tylenol PO 650 mg Q4H PRN Administration Pain MILD(1-3)/Fever >100.5/GALICIA Sodium Chloride 1,000 mls @ 75 mls/hr 08/31/19 04:00 09/02/19 21:14 Nacl 0.9% 1000 Ml IV 75 mls/hr DIRECT YOANDY Administration MEROPENEM/NS 1 GRAM/100 ML 1 gram in 100 mls @ 100 mls/hr 09/02/19 15:30 09/03/19 05:55 Merrem/Ns 1 Gram/100 Ml IV 100 mls/hr Q8HR YOANDY Administration Protocol Morphine Sulfate 2 mg 08/31/19 12:11 09/03/19 10:25 Morphine IV 2 mg Q4H PRN Administration Pain, Moderate (4-6) Ondansetron HCl 4 mg 08/31/19 03:59 08/31/19 09:23 Zofran IV 4 mg Q8H PRN Administration Nausea And Vomiting Pantoprazole Sodium 40 mg 09/03/19 10:00 09/03/19 10:30 Protonix PO 40 mg BID YOANDY Administration Sodium Chloride 10 ml 08/31/19 10:00 09/03/19 10:26 Sodium Chloride Flush Syringe 10 Ml IV 10 ml BID YOANDY Administration Sodium Chloride 10 ml 08/31/19 03:59 Sodium Chloride Flush Syringe 10 Ml IV PRN PRN LINE FLUSH
[2019-09-03] MEDS: SODIUM CHLORIDE 0.9% 1000 ML 1,000 ML IV SCH (17:45)
[2019-09-04] MEDS: MORPHINE 2 MG/1 ML INJ IV PRN ×5 (03:08→22:01)
[2019-09-04] MEDS: MEROPENEM/NS 1 GRAM/100 ML 1 GRAM/100 ML BAG IV SCH ×3 (06:17→21:57)
[2019-09-04 09:06] LABS: Hematocrit 26.9 % (30.3-42.9); Hemoglobin 8.1 gm/dl (10.1-14.3)
[2019-09-04] MEDS: PANTOPRAZOLE 40 MG TAB PO SCH ×2 (10:13→21:59)
[2019-09-04] MEDS: SODIUM CHLORIDE 0.9% 1000 ML 1,000 ML IV SCH (10:13)
--- NOTE | 2019-09-04 12:26 | Progress Note ---
Assessment and Plan Assessment and plan: Anemia. Patient's hemoglobin still less than 7. We will transfuse PRBCs once fever has resolved. Enteritis. CT abdomen showed enteritis. Continue antibiotics per ID. UTI. Continue antibiotics and follow-up blood and urine cultures. Sepsis. Present on admission. Patient still spiking fevers. Continue to follow-up cultures. Uterine fibroid. 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 History Interval history: No new issues overnight. Patient still with fever yesterday evening. Hospitalist Physical - Constitutional Vitals: Temp Pulse Resp BP Pulse Ox 99.5 F 89 22 133/54 97 09/04/19 11:23 09/04/19 11:23 09/04/19 11:23 09/04/19 11:23 09/04/19 11:23 General appearance: Present: no acute distress, well-nourished - EENT Eyes: Present: PERRL, EOM intact ENT: hearing intact, clear oral mucosa, dentition normal - Neck Neck: Present: supple, normal ROM - Respiratory Respiratory effort: normal Respiratory: bilateral: CTA - Cardiovascular Rhythm: regular Heart Sounds: Present: S1 & S2. Absent: gallop, rub - Extremities Extremities: no ischemia, No edema, Full ROM - Abdominal General gastrointestinal: soft, non-tender, non-distended, normal bowel sounds - Integumentary Integumentary: Present: clear, warm, dry - Neurologic Neurologic: CNII-XII intact, moves all extremities Results - Labs CBC & Chem 7: 09/04/19 08:13 09/01/19 05:57 Labs: Laboratory Last Values WBC 14.7 K/mm3 (4.5-11.0) H 09/01/19 05:57 RBC 3.43 M/mm3 (3.65-5.03) L 09/01/19 05:57 Hgb 8.1 gm/dl (10.1-14.3) L 09/04/19 08:13 Hct 26.9 % (30.3-42.9) L 09/04/19 08:13 MCV 63 fl (79-97) L 09/01/19 05:57 MCH 19 pg (28-32) L 09/01/19 05:57 MCHC 31 % (30-34) 09/01/19 05:57 RDW 25.7 % (13.2-15.2) H 09/01/19 05:57 Plt Count 301 K/mm3 (140-440) 09/01/19 05:57 Add Manual Diff Complete 09/01/19 05:57 Total Counted 100 09/01/19 05:57 Seg Neutrophils % Field Service Analyst 08/31/19 00:05 Seg Neuts % (Manual) 93.0 % (40.0-70.0) H 09/01/19 05:57 Band Neutrophils % 4.0 % 09/01/19 05:57 Lymphocytes % (Manual) 1.0 % (13.4-35.0) L 09/01/19 05:57 Reactive Lymphs % (Man) 0 % 09/01/19 05:57 Monocytes % (Manual) 2.0 % (0.0-7.3) 09/01/19 05:57 Eosinophils % (Manual) 0 % (0.0-4.3) 09/01/19 05:57 Basophils % (Manual) 0 % (0.0-1.8) 09/01/19 05:57 Metamyelocytes % 0 % 09/01/19 05:57 Myelocytes % 0 % 09/01/19 05:57 Promyelocytes % 0 % 09/01/19 05:57 Blast Cells % 0 % 09/01/19 05:57 Nucleated RBC % Not Reportable 09/01/19 05:57 Seg Neutrophils # Man 13.7 K/mm3 (1.8-7.7) H 09/01/19 05:57 Band Neutrophils # 0.6 K/mm3 09/01/19 05:57 Lymphocytes # (Manual) 0.1 K/mm3 (1.2-5.4) L 09/01/19 05:57 Abs React Lymphs (Man) 0.0 K/mm3 09/01/19 05:57 Monocytes # (Manual) 0.3 K/mm3 (0.0-0.8) 09/01/19 05:57 Eosinophils # (Manual) 0.0 K/mm3 (0.0-0.4) 09/01/19 05:57 Basophils # (Manual) 0.0 K/mm3 (0.0-0.1) 09/01/19 05:57 Metamyelocytes # 0.0 K/mm3 09/01/19 05:57 Myelocytes # 0.0 K/mm3 09/01/19 05:57 Promyelocytes # 0.0 K/mm3 09/01/19 05:57 Blast Cells # 0.0 K/mm3 09/01/19 05:57 WBC Morphology Not Reportable 09/01/19 05:57 Hypersegmented Neuts Not Reportable 09/01/19 05:57 Hyposegmented Neuts Not Reportable 09/01/19 05:57 Hypogranular Neuts Not Reportable 09/01/19 05:57 Smudge Cells Not Reportable 09/01/19 05:57 Toxic Granulation Not Reportable 09/01/19 05:57 Toxic Vacuolation Not Reportable 09/01/19 05:57 Dohle Bodies Not Reportable 09/01/19 05:57 Pelger-Huet Anomaly Not Reportable 09/01/19 05:57 Rukhsana Rods Not Reportable 09/01/19 05:57 Platelet Estimate Consistent w auto 09/01/19 05:57 Clumped Platelets Not Reportable 09/01/19 05:57 Plt Clumps, EDTA Not Reportable 09/01/19 05:57 Large Platelets Not Reportable 09/01/19 05:57 Giant Platelets Not Reportable 09/01/19 05:57 Platelet Satelliting Not Reportable 09/01/19 05:57 Plt Morphology Comment Not Reportable 09/01/19 05:57 RBC Morphology Not Reportable 09/01/19 05:57 Dimorphic RBCs Yes 09/01/19 05:57 Polychromasia Not Reportable 09/01/19 05:57 Hypochromasia 2+ 09/01/19 05:57 Poikilocytosis Not Reportable 09/01/19 05:57 Anisocytosis 2+ 09/01/19 05:57 Microcytosis Not Reportable 09/01/19 05:57 Macrocytosis 2+ 09/01/19 05:57 Spherocytes Not Reportable 09/01/19 05:57 Pappenheimer Bodies Not Reportable 09/01/19 05:57 Sickle Cells Not Reportable 09/01/19 05:57 Target Cells Few 09/01/19 05:57 Tear Drop Cells Not Reportable 09/01/19 05:57 Ovalocytes Few 09/01/19 05:57 Helmet Cells Not Reportable 09/01/19 05:57 Velarde-Crum Bodies Not Reportable 09/01/19 05:57 [place] Rings Not Reportable 09/01/19 05:57 Romario Cells Not Reportable 09/01/19 05:57 Bite Cells Not Reportable 09/01/19 05:57 Crenated Cell Not Reportable 09/01/19 05:57 Elliptocytes Not Reportable 09/01/19 05:57 Acanthocytes (Spur) Not Reportable 09/01/19 05:57 Rouleaux Not Reportable 09/01/19 05:57 Hemoglobin C Crystals Not Reportable 09/01/19 05:57 Schistocytes Not Reportable 09/01/19 05:57 Malaria parasites Not Reportable 09/01/19 05:57 Jacob Bodies Not Reportable 09/01/19 05:57 Hem Pathologist Commnt No 09/01/19 05:57 PT 15.2 Sec. (12.2-14.9) H 09/01/19 05:57 INR 1.18 (0.87-1.13) H 09/01/19 05:57 APTT 54.6 Sec. (24.2-36.6) H 09/01/19 05:57 Sodium 138 mmol/L (137-145) 09/01/19 05:57 Potassium 4.0 mmol/L (3.6-5.0) D 09/01/19 05:57 Chloride 105.3 mmol/L (98-107) 09/01/19 05:57 Carbon Dioxide 18 mmol/L (22-30) L 09/01/19 05:57 Anion Gap 19 mmol/L 09/01/19 05:57 BUN 11 mg/dL (7-17) 09/01/19 05:57 Creatinine 0.8 mg/dL (0.7-1.2) 09/01/19 05:57 Estimated GFR > 60 ml/min 09/01/19 05:57 BUN/Creatinine Ratio 14 % 09/01/19 05:57 Glucose 83 mg/dL (65-100) 09/01/19 05:57 Calcium 8.3 mg/dL (8.4-10.2) L 09/01/19 05:57 Total Bilirubin 0.70 mg/dL (0.1-1.2) 08/31/19 00:05 AST 19 units/L (5-40) 08/31/19 00:05 ALT 27 units/L (7-56) 08/31/19 00:05 Alkaline Phosphatase 109 units/L (35-129) 08/31/19 00:05 Total Protein 7.2 g/dL (6.3-8.2) 08/31/19 00:05 Albumin 3.3 g/dL (3.9-5) L 08/31/19 00:05 Albumin/Globulin Ratio 0.8 % 08/31/19 00:05 HCG, Qual Negative (Negative) 08/31/19 03:09 Urine Color Sally (Yellow) 08/30/19 Unknown Urine Turbidity Turbid (Clear) 08/30/19 Unknown Urine pH 5.0 (5.0-7.0) 08/30/19 Unknown Ur Specific [place] 1.021 (1.003-1.030) 08/30/19 Unknown Urine Protein 30 mg/dl mg/dL (Negative) 08/30/19 Unknown Urine Glucose (UA) Neg mg/dL (Negative) 08/30/19 Unknown Urine Ketones Neg mg/dL (Negative) 08/30/19 Unknown Urine Blood Neg (Negative) 08/30/19 Unknown Urine Nitrite Neg (Negative) 08/30/19 Unknown Urine Bilirubin Neg (Negative) 08/30/19 Unknown Urine Urobilinogen < 2.0 mg/dL (<2.0) 08/30/19 Unknown Ur Leukocyte Esterase Sm (Negative) 08/30/19 Unknown Urine WBC (Auto) 81.0 /HPF (0.0-6.0) H 08/30/19 Unknown Urine RBC (Auto) 6.0 /HPF (0.0-6.0) 08/30/19 Unknown U Epithel Cells (Auto) 8.0 /HPF (0-13.0) 08/30/19 Unknown Urine Bacteria (Auto) 2+ /HPF (Negative) 08/30/19 Unknown Urine Mucus Few /HPF 08/30/19 Unknown Urine HCG, Qual Negative (Negative) 08/30/19 Unknown Blood Type AB POSITIVE 09/03/19 05:27 Antibody Screen Negative 09/03/19 05:27 Crossmatch See Detail 09/03/19 05:27 Active Medications - Current Medications Current Medications: Generic Name Dose Route Start Last Admin Trade Name Freq PRN Reason Stop Dose Admin Acetaminophen 650 mg 08/31/19 03:59 09/03/19 18:00 Tylenol PO 650 mg Q4H PRN Administration Pain MILD(1-3)/Fever >100.5/GALICIA Sodium Chloride 1,000 mls @ 75 mls/hr 08/31/19 04:00 09/04/19 10:13 Nacl 0.9% 1000 Ml IV 75 mls/hr DIRECT YOANDY Administration MEROPENEM/NS 1 GRAM/100 ML 1 gram in 100 mls @ 100 mls/hr 09/02/19 15:30 09/04/19 06:17 Merrem/Ns 1 Gram/100 Ml IV 100 mls/hr Q8HR YOANDY Administration Protocol Morphine Sulfate 2 mg 08/31/19 12:11 09/04/19 10:13 Morphine IV 2 mg Q4H PRN Administration Pain, Moderate (4-6) Ondansetron HCl 4 mg 08/31/19 03:59 08/31/19 09:23 Zofran IV 4 mg Q8H PRN Administration Nausea And Vomiting Pantoprazole Sodium 40 mg 09/03/19 10:00 09/04/19 10:13 Protonix PO 40 mg BID YOANDY Administration Sodium Chloride 10 ml 08/31/19 10:00 09/04/19 10:15 Sodium Chloride Flush Syringe 10 Ml IV 10 ml BID YOANDY Administration Sodium Chloride 10 ml 08/31/19 03:59 09/03/19 23:03 Sodium Chloride Flush Syringe 10 Ml IV 10 ml PRN PRN Administration LINE FLUSH
[2019-09-05] MEDS: MORPHINE 2 MG/1 ML INJ IV PRN ×5 (02:23→23:26)
[2019-09-05] MEDS: SODIUM CHLORIDE 0.9% 1000 ML 1,000 ML IV SCH ×2 (02:24→19:22)
[2019-09-05] MEDS: MEROPENEM/NS 1 GRAM/100 ML 1 GRAM/100 ML BAG IV SCH ×3 (05:25→22:02)
[2019-09-05 08:58] LABS: Hematocrit 28.2 % (30.3-42.9); Hemoglobin 8.6 gm/dl (10.1-14.3); Mean Corpuscular HGB Conc 31 % (30-34); Platelet Count 817 K/mm3 (140-440); Red Blood Count 4.15 M/mm3 (3.65-5.03)
[2019-09-05 09:12] LABS: Mean Corpuscular Volume 68 fl (79-97); Red Cell Distribution Width 31.1 % (13.2-15.2)
[2019-09-05] MEDS: PANTOPRAZOLE 40 MG TAB PO SCH ×2 (09:30→22:01)
[2019-09-05 09:46] LABS: Total Cells Counted 100
[2019-09-05 09:47] LABS: Anisocytosis 3+; Band Neutrophils # (Manual) 0.1 K/mm3; Basophils % (Manual) 0 % (0.0-1.8); Eosinophils % (Manual) 0 % (0.0-4.3); Hypochromasia 2+
[2019-09-05 09:48] LABS: Large Platelets Few
[2019-09-05 09:49] LABS: Platelet Estimate Consistent w Auto
--- NOTE | 2019-09-05 11:32 | Progress Note ---
Assessment and Plan Assessment and plan: Anemia. Patient's hemoglobin still less than 7. We will transfuse PRBCs once fever has resolved. Enteritis. CT abdomen showed enteritis. Patient still complains of abdominal pain. Continue antibiotics per ID. UTI. Continue antibiotics and follow-up blood and urine cultures. Sepsis. Present on admission. Patient still spiking fevers. Continue to follow-up cultures. Uterine fibroid. 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 Disposition. Fever and leukocytosis have improved. If abdominal pain/flank pain has resolved likely will discharge in a.m. History Interval history: No new issues overnight. Fevers have improved Hospitalist Physical - Constitutional Vitals: Temp Pulse Resp BP Pulse Ox 98.8 F 77 18 123/66 97 09/05/19 04:40 09/05/19 04:40 09/05/19 04:40 09/05/19 04:40 09/05/19 04:40 General appearance: Present: no acute distress, well-nourished - EENT Eyes: Present: PERRL, EOM intact ENT: hearing intact, clear oral mucosa, dentition normal - Neck Neck: Present: supple, normal ROM - Respiratory Respiratory effort: normal Respiratory: bilateral: CTA - Cardiovascular Rhythm: regular Heart Sounds: Present: S1 & S2. Absent: gallop, rub - Extremities Extremities: no ischemia, No edema, Full ROM - Abdominal General gastrointestinal: soft, non-tender, non-distended, normal bowel sounds - Integumentary Integumentary: Present: clear, warm, dry - Neurologic Neurologic: CNII-XII intact, moves all extremities Results - Labs CBC & Chem 7: 09/05/19 08:39 09/01/19 05:57 Labs: Laboratory Last Values WBC 7.3 K/mm3 (4.5-11.0) 09/05/19 08:39 RBC 4.15 M/mm3 (3.65-5.03) 09/05/19 08:39 Hgb 8.6 gm/dl (10.1-14.3) L 09/05/19 08:39 Hct 28.2 % (30.3-42.9) L 09/05/19 08:39 MCV 68 fl (79-97) L 09/05/19 08:39 MCH 21 pg (28-32) L 09/05/19 08:39 MCHC 31 % (30-34) 09/05/19 08:39 RDW 31.1 % (13.2-15.2) H 09/05/19 08:39 Plt Count 817 K/mm3 (140-440) H 09/05/19 08:39 Add Manual Diff Complete 09/05/19 08:39 Total Counted 100 09/05/19 08:39 Seg Neutrophils % Coal Washer Tender 08/31/19 00:05 Seg Neuts % (Manual) 90.0 % (40.0-70.0) H 09/05/19 08:39 Band Neutrophils % 2.0 % 09/05/19 08:39 Lymphocytes % (Manual) 3.0 % (13.4-35.0) L 09/05/19 08:39 Reactive Lymphs % (Man) 0 % 09/05/19 08:39 Monocytes % (Manual) 5.0 % (0.0-7.3) 09/05/19 08:39 Eosinophils % (Manual) 0 % (0.0-4.3) 09/05/19 08:39 Basophils % (Manual) 0 % (0.0-1.8) 09/05/19 08:39 Metamyelocytes % 0 % 09/05/19 08:39 Myelocytes % 0 % 09/05/19 08:39 Promyelocytes % 0 % 09/05/19 08:39 Blast Cells % 0 % 09/05/19 08:39 Nucleated RBC % 1.0 % (0.0-0.9) H 09/05/19 08:39 Seg Neutrophils # Man 6.6 K/mm3 (1.8-7.7) 09/05/19 08:39 Band Neutrophils # 0.1 K/mm3 09/05/19 08:39 Lymphocytes # (Manual) 0.2 K/mm3 (1.2-5.4) L 09/05/19 08:39 Abs React Lymphs (Man) 0.0 K/mm3 09/05/19 08:39 Monocytes # (Manual) 0.4 K/mm3 (0.0-0.8) 09/05/19 08:39 Eosinophils # (Manual) 0.0 K/mm3 (0.0-0.4) 09/05/19 08:39 Basophils # (Manual) 0.0 K/mm3 (0.0-0.1) 09/05/19 08:39 Metamyelocytes # 0.0 K/mm3 09/05/19 08:39 Myelocytes # 0.0 K/mm3 09/05/19 08:39 Promyelocytes # 0.0 K/mm3 09/05/19 08:39 Blast Cells # 0.0 K/mm3 09/05/19 08:39 WBC Morphology Not Reportable 09/05/19 08:39 Hypersegmented Neuts Not Reportable 09/05/19 08:39 Hyposegmented Neuts Not Reportable 09/05/19 08:39 Hypogranular Neuts Not Reportable 09/05/19 08:39 Smudge Cells Not Reportable 09/05/19 08:39 Toxic Granulation Not Reportable 09/05/19 08:39 Toxic Vacuolation Not Reportable 09/05/19 08:39 Dohle Bodies Not Reportable 09/05/19 08:39 Pelger-Huet Anomaly Not Reportable 09/05/19 08:39 Rukhsana Rods Not Reportable 09/05/19 08:39 Platelet Estimate Consistent w auto 09/05/19 08:39 Clumped Platelets Not Reportable 09/05/19 08:39 Plt Clumps, EDTA Not Reportable 09/05/19 08:39 Large Platelets Few 09/05/19 08:39 Giant Platelets Not Reportable 09/05/19 08:39 Platelet Satelliting Not Reportable 09/05/19 08:39 Plt Morphology Comment Not Reportable 09/05/19 08:39 RBC Morphology Not Reportable 09/05/19 08:39 Dimorphic RBCs Not Reportable 09/05/19 08:39 Polychromasia Few 09/05/19 08:39 Hypochromasia 2+ 09/05/19 08:39 Poikilocytosis Not Reportable 09/05/19 08:39 Anisocytosis 3+ 09/05/19 08:39 Microcytosis 1+ 09/05/19 08:39 Macrocytosis Not Reportable 09/05/19 08:39 Spherocytes Not Reportable 09/05/19 08:39 Pappenheimer Bodies Not Reportable 09/05/19 08:39 Sickle Cells Not Reportable 09/05/19 08:39 Target Cells Not Reportable 09/05/19 08:39 Tear Drop Cells Not Reportable 09/05/19 08:39 Ovalocytes Not Reportable 09/05/19 08:39 Helmet Cells Not Reportable 09/05/19 08:39 Velarde-Lockney Bodies Not Reportable 09/05/19 08:39 [place] Rings Not Reportable 09/05/19 08:39 Romario Cells Not Reportable 09/05/19 08:39 Bite Cells Not Reportable 09/05/19 08:39 Crenated Cell Not Reportable 09/05/19 08:39 Elliptocytes Not Reportable 09/05/19 08:39 Acanthocytes (Spur) Not Reportable 09/05/19 08:39 Rouleaux Not Reportable 09/05/19 08:39 Hemoglobin C Crystals Not Reportable 09/05/19 08:39 Schistocytes Not Reportable 09/05/19 08:39 Malaria parasites Not Reportable 09/05/19 08:39 Jacob Bodies Not Reportable 09/05/19 08:39 Hem Pathologist Commnt No 09/05/19 08:39 PT 15.2 Sec. (12.2-14.9) H 09/01/19 05:57 INR 1.18 (0.87-1.13) H 09/01/19 05:57 APTT 54.6 Sec. (24.2-36.6) H 09/01/19 05:57 Sodium 138 mmol/L (137-145) 09/01/19 05:57 Potassium 4.0 mmol/L (3.6-5.0) D 09/01/19 05:57 Chloride 105.3 mmol/L (98-107) 09/01/19 05:57 Carbon Dioxide 18 mmol/L (22-30) L 09/01/19 05:57 Anion Gap 19 mmol/L 09/01/19 05:57 BUN 11 mg/dL (7-17) 09/01/19 05:57 Creatinine 0.8 mg/dL (0.7-1.2) 09/01/19 05:57 Estimated GFR > 60 ml/min 09/01/19 05:57 BUN/Creatinine Ratio 14 % 09/01/19 05:57 Glucose 83 mg/dL (65-100) 09/01/19 05:57 Calcium 8.3 mg/dL (8.4-10.2) L 09/01/19 05:57 Total Bilirubin 0.70 mg/dL (0.1-1.2) 08/31/19 00:05 AST 19 units/L (5-40) 08/31/19 00:05 ALT 27 units/L (7-56) 08/31/19 00:05 Alkaline Phosphatase 109 units/L (35-129) 08/31/19 00:05 Total Protein 7.2 g/dL (6.3-8.2) 08/31/19 00:05 Albumin 3.3 g/dL (3.9-5) L 08/31/19 00:05 Albumin/Globulin Ratio 0.8 % 08/31/19 00:05 HCG, Qual Negative (Negative) 08/31/19 03:09 Urine Color Sally (Yellow) 08/30/19 Unknown Urine Turbidity Turbid (Clear) 08/30/19 Unknown Urine pH 5.0 (5.0-7.0) 08/30/19 Unknown Ur Specific [place] 1.021 (1.003-1.030) 08/30/19 Unknown Urine Protein 30 mg/dl mg/dL (Negative) 08/30/19 Unknown Urine Glucose (UA) Neg mg/dL (Negative) 08/30/19 Unknown Urine Ketones Neg mg/dL (Negative) 08/30/19 Unknown Urine Blood Neg (Negative) 08/30/19 Unknown Urine Nitrite Neg (Negative) 08/30/19 Unknown Urine Bilirubin Neg (Negative) 08/30/19 Unknown Urine Urobilinogen < 2.0 mg/dL (<2.0) 08/30/19 Unknown Ur Leukocyte Esterase Sm (Negative) 08/30/19 Unknown Urine WBC (Auto) 81.0 /HPF (0.0-6.0) H 08/30/19 Unknown Urine RBC (Auto) 6.0 /HPF (0.0-6.0) 08/30/19 Unknown U Epithel Cells (Auto) 8.0 /HPF (0-13.0) 08/30/19 Unknown Urine Bacteria (Auto) 2+ /HPF (Negative) 08/30/19 Unknown Urine Mucus Few /HPF 08/30/19 Unknown Urine HCG, Qual Negative (Negative) 08/30/19 Unknown Blood Type AB POSITIVE 09/03/19 05:27 Antibody Screen Negative 09/03/19 05:27 Crossmatch See Detail 09/03/19 05:27 Active Medications - Current Medications Current Medications: Generic Name Dose Route Start Last Admin Trade Name Sanyaq PRN Reason Stop Dose Admin Acetaminophen 650 mg 08/31/19 03:59 09/03/19 18:00 Tylenol PO 650 mg Q4H PRN Administration Pain MILD(1-3)/Fever >100.5/GALICIA Sodium Chloride 1,000 mls @ 75 mls/hr 08/31/19 04:00 09/05/19 02:24 Nacl 0.9% 1000 Ml IV 75 mls/hr DIRECT YOANDY Administration MEROPENEM/NS 1 GRAM/100 ML 1 gram in 100 mls @ 100 mls/hr 09/02/19 15:30 09/05/19 05:25 Merrem/Ns 1 Gram/100 Ml IV 100 mls/hr Q8HR YOANDY Administration Protocol Morphine Sulfate 2 mg 08/31/19 12:11 09/05/19 10:30 Morphine IV 2 mg Q4H PRN Administration Pain, Moderate (4-6) Ondansetron HCl 4 mg 08/31/19 03:59 08/31/19 09:23 Zofran IV 4 mg Q8H PRN Administration Nausea And Vomiting Pantoprazole Sodium 40 mg 09/03/19 10:00 09/05/19 09:30 Protonix PO 40 mg BID YOANDY Administration Sodium Chloride 10 ml 08/31/19 10:00 09/05/19 09:31 Sodium Chloride Flush Syringe 10 Ml IV 10 ml BID YOANDY Administration Sodium Chloride 10 ml 08/31/19 03:59 09/03/19 23:03 Sodium Chloride Flush Syringe 10 Ml IV 10 ml PRN PRN Administration LINE FLUSH
--- NOTE | 2019-09-05 13:52 | Progress Note ---
Assessment and Plan Cultures: 08/30/2019 urine culture: <10K gomez 09/02/2019 blood culture: negative. A/P: 54 y/o female with uterine fibroids, admitted with #Severe anemia, leukemoid reaction: improving. Seen by GI. S/P transfusions. CT abdomen showed enteritis. #Fever, likely from UTI: UA with significant pyuria. ?not a clean sample given epithelial cells, cultures non revealing. But patient still symptomatic and febrile, will switch to Meropenem. #Enteritis: seems to have resolved. Noted on CT, diarrhea also resolved. ?viral v/s bacterial. Typically abx are not needed. Recs: continue IV Meropenem 1 gm q8 hrs - day 4 of 5. monitor fever and WBC Thank you for the consult, will follow. Mary Mckenzie MD [facility] ([facility]) M: [phone] O: [phone] F: [phone] Subjective Date of service: 09/05/19 Principal diagnosis: GI bleed Interval history: Afebrile now, normal white count. Objective - Exam Narrative Exam: Constitutional: Awake, alert, obese Head, Ears, Nose: Normocephalic, atraumatic. External ears, nose normal Eyes: Conjunctivae/corneas clear. No icterus. No ptosis. Neck: Supple, no meningeal signs Oral: no thrush Cardiovascular: S1, S2 normal. Respiratory: Good air entry, clear to auscultation bilaterally GI: Soft, non-tender; bowel sounds normal. No peritoneal signs. Musculoskeletal: No pedal edema, no cyanosis. Skin: No rash or abscess Hem/Lymphatic: No palpable cervical or supraclavicular nodes. No lymphangitis Psych: Mood ok. Affect normal Neurological: awake, alert, oriented, grossly non focal - Constitutional Vitals: Vital Signs Temp Pulse Resp BP Pulse Ox 98.5 F 78 20 111/61 95 09/05/19 11:49 09/05/19 11:49 09/05/19 11:49 09/05/19 11:49 09/05/19 11:49 Temperature -Last 24 Hours Temperature 98.5 F Temperature 98.8 F Temperature 98.9 F Temperature 99.7 F - Labs CBC & Chem 7: 09/05/19 08:39 09/01/19 05:57 Labs: Abnormal lab results 09/05/19 Range/Units 08:39 Hgb 8.6 L (10.1-14.3) gm/dl Hct 28.2 L (30.3-42.9) % MCV 68 L (79-97) fl MCH 21 L (28-32) pg RDW 31.1 H (13.2-15.2) % Plt Count 817 H (140-440) K/mm3 Seg Neuts % (Manual) 90.0 H (40.0-70.0) % Lymphocytes % (Manual) 3.0 L (13.4-35.0) % Nucleated RBC % 1.0 H (0.0-0.9) % Lymphocytes # (Manual) 0.2 L (1.2-5.4) K/mm3
[2019-09-06] MEDS: MORPHINE 2 MG/1 ML INJ IV PRN ×5 (03:14→21:20)
[2019-09-06] MEDS: MEROPENEM/NS 1 GRAM/100 ML 1 GRAM/100 ML BAG IV SCH ×3 (06:06→21:20)
[2019-09-06] MEDS: SODIUM CHLORIDE 0.9% 1000 ML 1,000 ML IV SCH ×2 (10:36→21:20)
[2019-09-06] MEDS: PANTOPRAZOLE 40 MG TAB PO SCH ×2 (10:36→21:20)
--- NOTE | 2019-09-06 14:02 | Progress Note ---
Assessment and Plan Cultures: 08/30/2019 urine culture: <10K gomez 09/02/2019 blood culture: negative. A/P: 54 y/o female with uterine fibroids, admitted with #Severe anemia, leukemoid reaction: improving. Seen by GI. S/P transfusions. CT abdomen showed enteritis. #Fever, likely from UTI: UA with significant pyuria. ?not a clean sample given epithelial cells, cultures non revealing. But patient still symptomatic and febrile, will switch to Meropenem. #Enteritis: seems to have resolved. Noted on CT, diarrhea also resolved. ?viral v/s bacterial. Typically abx are not needed. Recs: continue IV Meropenem 1 gm q8 hrs - day 5 of 5. Stop date entered on order monitor fever and WBC Thank you for the consult, will sign off. Please call with questions. . Mary Mckenzie MD [facility] ([facility]) M: [phone] O: [phone] F: [phone] Subjective Date of service: 09/06/19 Principal diagnosis: GI bleed Interval history: No fevers overnight, white count in normal range. Objective - Exam Narrative Exam: Constitutional: Awake, alert, obese Head, Ears, Nose: Normocephalic, atraumatic. External ears, nose normal Eyes: Conjunctivae/corneas clear. No icterus. No ptosis. Neck: Supple, no meningeal signs Oral: no thrush Cardiovascular: S1, S2 normal. Respiratory: Good air entry, clear to auscultation bilaterally GI: Soft, non-tender; bowel sounds normal. No peritoneal signs. No rebound Musculoskeletal: No pedal edema, no cyanosis. No flank pain Skin: No rash or abscess Hem/Lymphatic: No palpable cervical or supraclavicular nodes. No lymphangitis Psych: Mood ok. Affect normal Neurological: awake, alert, oriented, grossly non focal - Constitutional Vitals: Vital Signs Temp Pulse Resp BP Pulse Ox 98.3 F 82 19 132/57 98 09/06/19 11:36 09/06/19 11:36 09/06/19 11:36 09/06/19 11:36 09/06/19 11:36 Temperature -Last 24 Hours Temperature 98.3 F Temperature 98.7 F Temperature 98.9 F - Labs CBC & Chem 7: 09/05/19 08:39 09/01/19 05:57
--- NOTE | 2019-09-06 14:14 | Progress Note ---
Assessment and Plan Assessment and plan: Anemia. s/p PRBC transfused. Enteritis. CT abdomen showed enteritis. Patient still complains of abdominal pain. Continue merrem iv as per ID. To complete tonight UTI. Continue antibiotics and follow-up blood and urine cultures. Sepsis. Present on admission. On Merrem. Uterine fibroid. Follow-up with [facility] as an outpatient to rule out source of possible chronic bleeding. Disposition. To dc home tomorrow History Interval history: Nausea nad vomiting resolved abd pain subsided Hospitalist Physical - Physical exam Narrative exam: GEN: Not in acute distress, lying in bed HEENT: Normocephalic, atraumatic, Neck: supple, No JVD Lungs: Clear to auscultation bilaterally, no wheeze, heart;S1 and S2 reg, no murmurs Abd:soft, non tender, non distended, normal bowel sounds Ext: No edema, no clubbing, no cyanosis Neuro: AAO X 3, no focal neurological signs - Constitutional Vitals: Temp Pulse Resp BP Pulse Ox 98.3 F 82 19 132/57 98 09/06/19 11:36 09/06/19 11:36 09/06/19 11:36 09/06/19 11:36 09/06/19 11:36 General appearance: Present: no acute distress, well-nourished Results - Labs CBC & Chem 7: 09/05/19 08:39 09/01/19 05:57 Labs: Laboratory Last Values WBC 7.3 K/mm3 (4.5-11.0) 09/05/19 08:39 RBC 4.15 M/mm3 (3.65-5.03) 09/05/19 08:39 Hgb 8.6 gm/dl (10.1-14.3) L 09/05/19 08:39 Hct 28.2 % (30.3-42.9) L 09/05/19 08:39 MCV 68 fl (79-97) L 09/05/19 08:39 MCH 21 pg (28-32) L 09/05/19 08:39 MCHC 31 % (30-34) 09/05/19 08:39 RDW 31.1 % (13.2-15.2) H 09/05/19 08:39 Plt Count 817 K/mm3 (140-440) H 09/05/19 08:39 Add Manual Diff Complete 09/05/19 08:39 Total Counted 100 09/05/19 08:39 Seg Neutrophils % [employer] 08/31/19 00:05 Seg Neuts % (Manual) 90.0 % (40.0-70.0) H 09/05/19 08:39 Band Neutrophils % 2.0 % 09/05/19 08:39 Lymphocytes % (Manual) 3.0 % (13.4-35.0) L 09/05/19 08:39 Reactive Lymphs % (Man) 0 % 09/05/19 08:39 Monocytes % (Manual) 5.0 % (0.0-7.3) 09/05/19 08:39 Eosinophils % (Manual) 0 % (0.0-4.3) 09/05/19 08:39 Basophils % (Manual) 0 % (0.0-1.8) 09/05/19 08:39 Metamyelocytes % 0 % 09/05/19 08:39 Myelocytes % 0 % 09/05/19 08:39 Promyelocytes % 0 % 09/05/19 08:39 Blast Cells % 0 % 09/05/19 08:39 Nucleated RBC % 1.0 % (0.0-0.9) H 09/05/19 08:39 Seg Neutrophils # Man 6.6 K/mm3 (1.8-7.7) 09/05/19 08:39 Band Neutrophils # 0.1 K/mm3 09/05/19 08:39 Lymphocytes # (Manual) 0.2 K/mm3 (1.2-5.4) L 09/05/19 08:39 Abs React Lymphs (Man) 0.0 K/mm3 09/05/19 08:39 Monocytes # (Manual) 0.4 K/mm3 (0.0-0.8) 09/05/19 08:39 Eosinophils # (Manual) 0.0 K/mm3 (0.0-0.4) 09/05/19 08:39 Basophils # (Manual) 0.0 K/mm3 (0.0-0.1) 09/05/19 08:39 Metamyelocytes # 0.0 K/mm3 09/05/19 08:39 Myelocytes # 0.0 K/mm3 09/05/19 08:39 Promyelocytes # 0.0 K/mm3 09/05/19 08:39 Blast Cells # 0.0 K/mm3 09/05/19 08:39 WBC Morphology Not Reportable 09/05/19 08:39 Hypersegmented Neuts Not Reportable 09/05/19 08:39 Hyposegmented Neuts Not Reportable 09/05/19 08:39 Hypogranular Neuts Not Reportable 09/05/19 08:39 Smudge Cells Not Reportable 09/05/19 08:39 Toxic Granulation Not Reportable 09/05/19 08:39 Toxic Vacuolation Not Reportable 09/05/19 08:39 Dohle Bodies Not Reportable 09/05/19 08:39 Pelger-Huet Anomaly Not Reportable 09/05/19 08:39 Rukhsana Rods Not Reportable 09/05/19 08:39 Platelet Estimate Consistent w auto 09/05/19 08:39 Clumped Platelets Not Reportable 09/05/19 08:39 Plt Clumps, EDTA Not Reportable 09/05/19 08:39 Large Platelets Few 09/05/19 08:39 Giant Platelets Not Reportable 09/05/19 08:39 Platelet Satelliting Not Reportable 09/05/19 08:39 Plt Morphology Comment Not Reportable 09/05/19 08:39 RBC Morphology Not Reportable 09/05/19 08:39 Dimorphic RBCs Not Reportable 09/05/19 08:39 Polychromasia Few 09/05/19 08:39 Hypochromasia 2+ 09/05/19 08:39 Poikilocytosis Not Reportable 09/05/19 08:39 Anisocytosis 3+ 09/05/19 08:39 Microcytosis 1+ 09/05/19 08:39 Macrocytosis Not Reportable 09/05/19 08:39 Spherocytes Not Reportable 09/05/19 08:39 Pappenheimer Bodies Not Reportable 09/05/19 08:39 Sickle Cells Not Reportable 09/05/19 08:39 Target Cells Not Reportable 09/05/19 08:39 Tear Drop Cells Not Reportable 09/05/19 08:39 Ovalocytes Not Reportable 09/05/19 08:39 Helmet Cells Not Reportable 09/05/19 08:39 [place] Bodies Not Reportable 09/05/19 08:39 [place] Rings Not Reportable 09/05/19 08:39 Dewart Cells Not Reportable 09/05/19 08:39 Bite Cells Not Reportable 09/05/19 08:39 Crenated Cell Not Reportable 09/05/19 08:39 Elliptocytes Not Reportable 09/05/19 08:39 Acanthocytes (Spur) Not Reportable 09/05/19 08:39 Rouleaux Not Reportable 09/05/19 08:39 Hemoglobin C Crystals Not Reportable 09/05/19 08:39 Schistocytes Not Reportable 09/05/19 08:39 Malaria parasites Not Reportable 09/05/19 08:39 Jacob Bodies Not Reportable 09/05/19 08:39 Hem Pathologist Commnt No 09/05/19 08:39 PT 15.2 Sec. (12.2-14.9) H 09/01/19 05:57 INR 1.18 (0.87-1.13) H 09/01/19 05:57 APTT 54.6 Sec. (24.2-36.6) H 09/01/19 05:57 Sodium 138 mmol/L (137-145) 09/01/19 05:57 Potassium 4.0 mmol/L (3.6-5.0) D 09/01/19 05:57 Chloride 105.3 mmol/L (98-107) 09/01/19 05:57 Carbon Dioxide 18 mmol/L (22-30) L 09/01/19 05:57 Anion Gap 19 mmol/L 09/01/19 05:57 BUN 11 mg/dL (7-17) 09/01/19 05:57 Creatinine 0.8 mg/dL (0.7-1.2) 09/01/19 05:57 Estimated GFR > 60 ml/min 09/01/19 05:57 BUN/Creatinine Ratio 14 % 09/01/19 05:57 Glucose 83 mg/dL (65-100) 09/01/19 05:57 Calcium 8.3 mg/dL (8.4-10.2) L 09/01/19 05:57 Total Bilirubin 0.70 mg/dL (0.1-1.2) 08/31/19 00:05 AST 19 units/L (5-40) 08/31/19 00:05 ALT 27 units/L (7-56) 08/31/19 00:05 Alkaline Phosphatase 109 units/L (35-129) 08/31/19 00:05 Total Protein 7.2 g/dL (6.3-8.2) 08/31/19 00:05 Albumin 3.3 g/dL (3.9-5) L 08/31/19 00:05 Albumin/Globulin Ratio 0.8 % 08/31/19 00:05 HCG, Qual Negative (Negative) 08/31/19 03:09 Urine Color Sally (Yellow) 08/30/19 Unknown Urine Turbidity Turbid (Clear) 08/30/19 Unknown Urine pH 5.0 (5.0-7.0) 08/30/19 Unknown Ur Specific [place] 1.021 (1.003-1.030) 08/30/19 Unknown Urine Protein 30 mg/dl mg/dL (Negative) 08/30/19 Unknown Urine Glucose (UA) Neg mg/dL (Negative) 08/30/19 Unknown Urine Ketones Neg mg/dL (Negative) 08/30/19 Unknown Urine Blood Neg (Negative) 08/30/19 Unknown Urine Nitrite Neg (Negative) 08/30/19 Unknown Urine Bilirubin Neg (Negative) 08/30/19 Unknown Urine Urobilinogen < 2.0 mg/dL (<2.0) 08/30/19 Unknown Ur Leukocyte Esterase Sm (Negative) 08/30/19 Unknown Urine WBC (Auto) 81.0 /HPF (0.0-6.0) H 08/30/19 Unknown Urine RBC (Auto) 6.0 /HPF (0.0-6.0) 08/30/19 Unknown U Epithel Cells (Auto) 8.0 /HPF (0-13.0) 08/30/19 Unknown Urine Bacteria (Auto) 2+ /HPF (Negative) 08/30/19 Unknown Urine Mucus Few /HPF 08/30/19 Unknown Urine HCG, Qual Negative (Negative) 08/30/19 Unknown Blood Type AB POSITIVE 09/03/19 05:27 Antibody Screen Negative 09/03/19 05:27 Crossmatch See Detail 09/03/19 05:27 Active Medications - Current Medications Current Medications: Generic Name Dose Route Start Last Admin Trade Name Freq PRN Reason Stop Dose Admin Acetaminophen 650 mg 08/31/19 03:59 09/03/19 18:00 Tylenol PO 650 mg Q4H PRN Administration Pain MILD(1-3)/Fever >100.5/GALICIA Sodium Chloride 1,000 mls @ 75 mls/hr 08/31/19 04:00 09/06/19 10:36 Nacl 0.9% 1000 Ml IV 75 mls/hr DIRECT YOANDY Administration MEROPENEM/NS 1 GRAM/100 ML 1 gram in 100 mls @ 100 mls/hr 09/02/19 15:30 09/06/19 13:07 Merrem/Ns 1 Gram/100 Ml IV 09/07/19 06:59 100 mls/hr Q8HR YOANDY Administration Protocol Morphine Sulfate 2 mg 08/31/19 12:11 09/06/19 12:53 Morphine IV 2 mg Q4H PRN Administration Pain, Moderate (4-6) Ondansetron HCl 4 mg 08/31/19 03:59 08/31/19 09:23 Zofran IV 4 mg Q8H PRN Administration Nausea And Vomiting Pantoprazole Sodium 40 mg 09/03/19 10:00 09/06/19 10:36 Protonix PO 40 mg BID YOANDY Administration Sodium Chloride 10 ml 08/31/19 10:00 09/06/19 10:37 Sodium Chloride Flush Syringe 10 Ml IV 10 ml BID YOANDY Administration Sodium Chloride 10 ml 08/31/19 03:59 09/03/19 23:03 Sodium Chloride Flush Syringe 10 Ml IV 10 ml PRN PRN Administration LINE FLUSH
[2019-09-07] MEDS: MORPHINE 2 MG/1 ML INJ IV PRN ×4 (01:24→12:57)
[2019-09-07] MEDS: MEROPENEM/NS 1 GRAM/100 ML 1 GRAM/100 ML BAG IV SCH (05:23)
[2019-09-07] MEDS: ACETAMINOPHEN 325 MG TAB PO PRN ×2 (05:28→15:13)
[2019-09-07] MEDS: PANTOPRAZOLE 40 MG TAB PO SCH (08:57)
--- NOTE | 2019-09-07 12:04 | Discharge Summary ---
Providers - Providers Date of Admission: 08/31/19 06:30 Date of discharge: 09/07/19 Attending physician: DIANA BALES 08/31/19 01:29 Consult to Physician [CONS] Urgent Comment: Consulting Provider: RUBIA MORA Physician Instructions: Reason For Exam: GI bleed 09/01/19 11:14 Consult to Physician [CONS] Routine Comment: Consulting Provider: NUPUR DRAKE Physician Instructions: consult ID Reason For Exam: fever Primary care physician: ENGINEERING ADMINISTRATOR Hospitalization Condition: Fair Disposition: DC-01 TO HOME OR SELFCARE Exam - Constitutional Vitals: Temp Pulse Resp BP Pulse Ox 98.4 F 77 18 129/55 97 09/06/19 21:52 09/06/19 21:52 09/07/19 05:28 09/06/19 21:52 09/06/19 21:52 Plan Activity: no restrictions Diet: low fat, low cholesterol, low salt Plan of Treatment: 1.Follow up with PCP in 1 week. 2.Follow up with Dr. Bari Adhikari in 2 weeks 3.Follow up with Gynecology in 1 week Follow up with: PRIMARY MD CHAVEZ [Primary Care Provider] - 7 Days
[2019-09-07 14:25] VITALS: BP 137/70
== END 2019-09-07 15:30 | disposition home or self-care (01) | DRG 871 ==
LOC: ED 21:06 → 3A 08-31 06:30
PROVIDERS: ADMIT Internal Medicine Geriatric Medicine; ATTEND Internal Medicine
PROC: 0DB68ZX Excision of Stomach, Via Natural or Artificial Opening Endoscopic, Diagnostic (ICD-10-PCS; principal; 2019-08-31)
PROC: 30233N1 Transfusion of Nonautologous Red Blood Cells into Peripheral Vein, Percutaneous Approach (ICD-10-PCS; 2019-08-31)
DX: A41.9 Sepsis, unspecified organism (principal); K25.4 Chronic or unspecified gastric ulcer with hemorrhage; N39.0 Urinary tract infection, site not specified; K52.9 Noninfective gastroenteritis and colitis, unspecified; D25.9 Leiomyoma of uterus, unspecified; D64.9 Anemia, unspecified; Z88.5 Allergy status to narcotic agent; Z88.2 Allergy status to sulfonamides
CPT/HCPCS: 36415; 36430; 74174; 80048; 80053; 81001; 81025; 82271; 84703; 85007; 85018; 85025; 85610; 85730; 86850; 86900; 86901; 86920; 87040; 87045; 87086; 88305; 88342; G0378; C9113; J0696; J1956; J2185; J2270; J2405; J2704; J3010; J7030; J7040; P9016; Q9967